=== PATIENT | female | born 1980 | race Caucasian/White ===

== ENCOUNTER → 2018-06-24 | Outpatient (REF) | payer OTHER | LOC: M SFHCLERA 18:50 | DX: R50.9 Fever, unspecified (principal) ==

== ENCOUNTER 2018-09-10 12:08 | Emergency (ER) | payer OTHER ==
[~2018-09-10] VITALS: Ht 162.6 cm; Wt 82.7 kg
[2018-09-10] MEDS ORDERED: NS 1,000 ML IV ONE (12:45)
[2018-09-10] MEDS ORDERED: PANTOPRAZOLE 40MG INJ (PROTONIX) (C9113) IV ONE (12:45)
[2018-09-10] MEDS ORDERED: KETOROLAC 30 MG/ML VIAL (J1885) IV ONE (12:45)
[2018-09-10] MEDS ORDERED: ONDANSETRON 4MG/2ML VIAL (J2405) IV ONE (12:45)
[2018-09-10 12:51] LABS: BASO % 0.3 % (0.0-1.0); EOS % 0.3 % (0.0-3.0); HEMATOCRIT 43.4 % (36.0-47.0); HEMOGLOBIN 14.9 g/dl (12.0-15.5); LYMPH # 2.8 10^3/uL (1.5-4.5); LYMPH % 32.3 % (24.0-44.0); MEAN CORPUSCULAR HEMOGLOBIN 30.1 pg (27.0-33.0); MEAN CORPUSCULAR HGB CONC 34.3 g/dl (32.0-36.5); MEAN CORPUSCULAR VOLUME 87.7 fl (80.0-96.0); MONO # 0.6 10^3/uL (0.0-0.8); MONO % 6.6 % (0.0-5.0); NEUTROPHILS # 5.3 10^3/uL (1.8-7.7); NEUTROPHILS % 60.3 % (36.0-66.0); PLATELET COUNT, AUTOMATED 349 10^3/uL (150-450); RED BLOOD COUNT 4.95 10^6/uL (4.00-5.40); WHITE BLOOD COUNT 8.8 10^3/uL (4.0-10.0)
[2018-09-10 13:03] LABS: INR 0.93; PROTHROMBIN TIME 12.5 SECONDS (12.1-14.4)
[2018-09-10 13:04] LABS: PARTIAL THROMBOPLASTIN TIME 28.3 SECONDS (25.4-37.6)
[2018-09-10 13:24] LABS: ALBUMIN 4.3 GM/DL (3.2-5.2); ALT/SGPT 22 U/L (12-78); BILIRUBIN,DIRECT 0.1 MG/DL (0.0-0.2); BILIRUBIN,TOTAL 0.4 MG/DL (0.2-1.0); BLOOD UREA NITROGEN 12 MG/DL (7-18); CALCIUM LEVEL 9.6 MG/DL (8.5-10.1); CARBON DIOXIDE LEVEL 28 MEQ/L (21-32); CHLORIDE LEVEL 102 MEQ/L (98-107); CK-MB VALUE MASS < 1.0 NG/ML (<3.6); CPK CREATINE PHOSPHOKINASE 66 U/L (26-192); CREATININE FOR GFR 0.78 MG/DL (0.55-1.30); FREE T4 1.23 NG/DL (0.76-1.46); GLOMERULAR FILTRATION RATE > 60.0 (>60); GLUCOSE, FASTING 91 MG/DL (70-100); LIPASE 136 U/L (73-393); MB/CK RELATIVE INDEX 1.52 (< OR =4); POTASSIUM SERUM 3.6 MEQ/L (3.5-5.1); SODIUM LEVEL 140 MEQ/L (136-145); TOTAL PROTEIN 7.4 GM/DL (6.4-8.2); TROPONIN I < 0.02 NG/ML (< 0.10)
[2018-09-10] MEDS ORDERED: ISOVUE-370 76% 100ML VIAL (Q9967) As Ordered ONE (13:35)
[2018-09-10 13:42] LABS: HCG, SERUM QUALITATIVE NEGATIVE (NEGATIVE)
--- NOTE | 2018-09-10 14:06 | REP ---
Clinical: Left upper quadrant pain. Technique: Axial contrast enhanced images from the lung bases to the pubic symphysis using 100 ml Isovue 370 intravenous contrast material with coronal and sagittal re-formations. Comparison: None. Findings: Lung bases are clear. Visualized heart and pericardium normal. Liver, spleen, pancreas, bilateral adrenal glands and kidneys are normal. The patient is status post cholecystectomy. The enteric system demonstrates moderate fecal stasis and presumed constipation. Normal terminal ileum and appendix are identified in the right lower quadrant. Pelvis demonstrates distended bladder likely transient and evidence for partial hysterectomy. Cystic change to the right ovary likely physiologic. No pelvic fluid or ascites. No adenopathy. No free air. Abdominal aorta and vasculature normal. Surrounding musculoskeletal structures without focal osseous abnormality. Impression: 1. Moderate fecal stasis and presumed constipation. 2. Evidence of prior hysterectomy and cholecystectomy. 3. No acute abdominopelvic pathology otherwise noted. Specifically, no ascites, inflammatory stranding, or adenopathy. Electronically Signed by Gerson Nichols MD 09/10/2018 01:58 P
--- NOTE | 2018-09-10 14:07 | REP ---
Clinical: Acute chest pain . Comparison: None . Findings: The mediastinum and cardiac silhouette are stable and within normal limits for portable technique. The lung mancini are clear without acute consolidation, effusion, or pneumothorax. Skeletal structures are intact. Impression: No acute cardiopulmonary process appreciated. Electronically Signed by Gerson Nichols MD 09/10/2018 01:59 P
[2018-09-10 14:23] VITALS: BP 132/80
[2018-09-10] MEDS ORDERED: MAGNESIUM CITRATE 300 ML BTL PO ONE (14:30)
--- NOTE | 2018-09-10 18:38 | ECGEPIP ---
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
== END 2018-09-10 14:36 | disposition home or self-care (01) ==
LOC: M ED 12:08
DX: K59.00 Constipation, unspecified (principal); Z88.0 Allergy status to penicillin; F17.210 Nicotine dependence, cigarettes, uncomplicated
CPT/HCPCS: 71045; 74177; 80048; 80076; 82550; 82553; 83690; 84439; 84443; 84484; 84703; 85025; 85610; 85730; 93005; 93041; 94760; 96361; 96374; 96375; 99285; C9113; J1885; J2405; Q9967

== ENCOUNTER → 2018-09-17 | Outpatient (CLI) | payer OTHER ==
--- NOTE | 2018-10-02 23:47 | ECWPNPC ---
PATIENT NAME: EREN MEDEROS : 1980 GENDER: FEMALE VISIT DATE: 09/17/2018 DISCHARGE DATE: 09/17/18 1256 VISIT LOCKED DATE TIME: PHYSICIAN: ANTONY BAINS MD RESOURCE: ANTONY BAINS MD REASON FOR APPOINTMENT 1. BACK PAIN HISTORY OF PRESENT ILLNESS NEW PATIENT CONSULT: WHEN DID YOUR PAIN FIRST START? . BRIEFLY DESCRIBE HOW YOUR PAIN STARTED? . HOW DOES YOUR PAIN CHANGE WITH TIME? . DOES YOUR PAIN AWAKEN YOU FROM SLEEP? . HOW MANY HOURS OF SLEEP DO YOU NORMALLY GET? . ANY DIAGNOSTIC TESTING? . FACILITY WHERE TESTS WERE DONE? ____. PAIN TREATMENT TREATMENT YES CANCER HAVE YOU EVER HAD ANY TYPE OF CANCER?NO NO. 37 YEAR OLD FEMALE PATIENT WITH A HISTORY OF CHRONIC LOW BACK PAIN. THE PATIENT DESCRIBES THE PAIN ACHING, SHARP, STABBING, SHOOTING, AND HAVING IT ALL THE TIME WITH A PAIN SCORE OF 6-9/10 DEPENDING ON PHYSICAL ACTIVITY. THE PATIENT STATES THAT SHE HAS HAD THIS PAIN SINCE AROUND 2001 AND IT STARTED IN HER NECK AREA, BUT HAS SINCE SPREAD ALL THE WAY DOWN HER BACK. THE PATIENT SAYS HER PAIN STARTS IN HER LOW BACK AREA AND RADIATES INTO HER RIGHT BUTTOCK AND RIGHT HIP AREA. THE PATIENT SAYS THAT SHE HAS TRIED PHYSICAL THERAPY AND ACUPUNCTURE IN THE PAST, BUT THEY DID NOT HELP. THE PATIENT SAYS SHE HAS DIFFICULTY SLEEPING DUE TO THIS PAIN. THE PATIENT STATES THAT SHE HAS TRIED IBUPROFEN AND NAPROXEN, BUT HER SHE EXPERIENCES AN UPSET STOMACH WHEN SHE TAKES NSAIDS. THE PATIENT SAYS SHE HAS BEEN CONSTIPATED, BUT IS CURRENTLY USING MIRALAX AND IS ON A HIGH FIBER DIET. PATIENT DENIES UNEXPLAINABLE WEIGHT LOSS, FEVER, CHILLS, NEW CHANGES ON HER URINARY CONTROL. PAIN SCREENING: PATIENT HAS A COMPLAINT OF ACUTE OR CHRONIC PAIN :YES FALL RISK SCREENING: SCREENING :NO FALLS IN THE PAST YEAR GUEVARA INVENTORY: QUESTIONNAIRE ASSESSEDTBD SCORE VALUE CALCULATED TBD CURRENT MEDICATIONS TAKING OXYCODONE-ACETAMINOPHEN 5-325 MG TABLET 1 TABLET NEEDED ORALLY EVERY 6 HRS, NOTES: FEBRUARY 2018 TAKING ALEVE 220 MG TABLET 1 TABLET WITH FOOD OR MILK NEEDED ORALLY EVERY 12 HRS TAKING CETIRIZINE HCL 10 MG TABLET 1 TABLET ORALLY ONCE A DAY, NOTES: NEEDED TAKING FLONASE 50 MCG/ACT SUSPENSION 1 SPRAY IN EACH NOSTRIL NASALLY BID TAKING CYCLOBENZAPRINE HCL 10 MG TABLET 1 TABLET NEEDED ORALLY TWICE A DAY, NOTES: IS OUT OF IT NOT-TAKING NAPROXEN 250 MG TABLET 1 TABLET WITH FOOD OR MILK ORALLY TWICE A DAY, NOTES: OUT OF MED NOT-TAKING MUCINEX 600 MG TABLET EXTENDED RELEASE 12 HOUR 1 TABLET NEEDED ORALLY EVERY 12 HRS NOT-TAKING AUGMENTIN 875-125 MG TABLET 1 TABLET ORALLY EVERY 12 HRS MEDICATION LIST REVIEWED AND RECONCILED WITH THE PATIENT PAST MEDICAL HISTORY ALLERGIC RHINITIS, UNSPECIFIED SEASONALITY, UNSPECIFIED TRIGGER DISC DISEASE, DEGENERATIVE, CERVICAL DISC DISEASE, DEGENERATIVE, LUMBAR OR LUMBOSACRAL HX OF ENDOMETRIOSIS ALLERGY INJECTIONS FOR YEARS ALLERGIES PENICILLIN (FOR ALLERGIES USE ONLY): HIVES: ALLERGY SURGICAL HISTORY CHOLECYSTECTOMY 2005 PARTIAL HYSTERECTOMY (LEFT CERVIX,RIGHT OVARY). 2011 SINUS SURGERY 2010 FAMILY HISTORY FATHER: ALIVE 56 YRS, HEART DISEASE, COPD, SMOKER MOTHER: ALIVE 55 YRS, DM-2 HTN SIBLINGS: ALIVE SON(S): ALIVE PATERNAL GRAND FATHER: 70 YRS, KIDNEY CANCER PATERNAL GRAND MOTHER: 41 YRS, MASSIVE [place] MATERNAL GRAND FATHER: 70 YRS, HEART FAILURE MATERNAL GRAND MOTHER: ALIVE, DM-2 1 BROTHER(S) , 1 SISTER(S) - HEALTHY. 3 SON(S) - HEALTHY. 1 BROTHER MANIC BIPOLAR1 SON AUTISTIC,MANIC DEPRESSIVE ALL BOYS. SOCIAL HISTORY GENERAL: TOBACCO USE ARE YOU A:NONSMOKER LUNG CANCER SCREENING DAILY. ALCOHOL SCREENING DID YOU HAVE A DRINK CONTAINING ALCOHOL IN THE PAST YEAR?YES HOW OFTEN DID YOU HAVE A DRINK CONTAINING ALCOHOL IN THE PAST YEAR?MONTHLY OR LESS (1 POINT) HOW MANY DRINKS DID YOU HAVE ON A TYPICAL DAY WHEN YOU WERE DRINKING IN THE PAST YEAR?1 OR 2 (0 POINTS) POINTS1 INTERPRETATIONNEGATIVE SIKH SIKH NO PREFERENCE LANGUAGE LANGUAGES SPOKEN:WELSH EDUCATION LEVEL OF EDUCATION:FINISHED COLLEGE OCCUPATION: DO YOU FEEL SAFE IN YOUR ENVIRONMENT? YES. DIET: DO YOU FEEL SAFE IN YOUR ENVIRONMENT? YES WORKING A [employer]. EXERCISE: DO YOU FEEL SAFE IN YOUR ENVIRONMENT? YES WORKING A [employer], REGULAR. MARITAL STATUS: DO YOU FEEL SAFE IN YOUR ENVIRONMENT? 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 OTHERS AT HOME: DO YOU FEEL SAFE IN YOUR ENVIRONMENT? 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 YES WORKING A TEMP, REGULAR, DAILY WALK, , CHILDREN, SPOUSE. HOUSING: PFS REFERRAL NEEDED? NO, CLERGY REFERRAL NEEDED? NO, PUBLIC HEALTH REFERRAL NEEDED? NO, WAS THE PROVIDER NOTIFIED OF ANY PERTINENT INFO? NO, HAS THE PATIENT BEEN EDUCATED REGARDING HIS/HER PLAN OF CARE? YES, HAS THE PATIENT BEEN EDUCATED REGARDING PAIN, THE RISK FOR PAIN, THE IMPORTANCE OF EFFECTIVE PAIN MANAGEMENT, AND THE PAIN ASSESSMENT PROCESS? YES. ADVANCE DIRECTIVE ADVANCE DIRECTIVE DISCUSSED WITH PATIENT:YES FROM [facility] JUST MOVED HERE FROM [place]. HOSPITALIZATION/MAJOR DIAGNOSTIC PROCEDURE NO HOSPITALIZATION HISTORY. REVIEW OF SYSTEMS REVIEWED BY: PROVIDER: ANTONY BAINS MD . CONSTITUTIONAL: ANY CHANGE IN YOUR MEDICAL CONDITION? NO . CHILLS NO . FEVER NO . INFECTION: DO YOU HAVE NEW INFECTIONS? NO . DO YOU HAVE HISTORY OF MRSA? NO . MUSCULOSKELETAL: ANY NEW PATTERNS OF PAIN OR NUMBNESS? ICREASED LATELY TO INTERFERE WITH FUNCTION . SYTEMIC LUPUS NO BUT PATIENT WAS BORN WITH FUSION IN CERVIACAL OF SPINE . GASTROENTEROLOGY: ANY NEW CHANGE IN BOWEL CONTROL? HAVING IOICREASED COSTIPATION AND PAINFUL TO STRAIN . BARRETTS ESOPHAGUS NO . CIRRHOSIS NO . HEPATITIS NO . LIVER FAILURE NO . ACID REFLUX NO . UNEXPLAINED WEIGHT LOSS NO . GENITOURINARY: ANY NEW CHANGE IN BLADDER CONTROL? NO . IS THERE A CHANCE YOU COULD BE ? NO . HEMATOLOGY/LYMPH: DO YOU TAKE ANY BLOOD THINNERS? (FOR EXAMPLE- COUMADIN, PLAVIX, AGGRENOX, PLATEL, PRADAXA, OR XARELTO) NO . WHEN WAS YOUR LAST DOSE? DATE: TIME: . LOW PLATELET COUNT NO . SICKLE CELL DISEASE NO . VON WILLIEBRANDS NO . FACTOR V LEIDEN NO . THALLASEMIA NO . ANEMIA NO . EASY BRUISING NO . NEUROLOGY: HAVE YOU FALLEN IN THE PAST 6 MONTHS? NO . ANY NEW EXTREMITY NUMBNESS OR WEAKNESS? NO . HEAD INJURY NO . DEMENTIA NO . CEREBRAL PALSY NO . MULTIPLE SCLEROSIS NO . DIZZINESS NO . HEADACHE NO . STROKES NO . VERTIGO NO . CARDIOLOGY: DO YOU HAVE A PACEMAKER OR DEFIBRILLATOR? NO . ANGINA NO . HEART ATTACK NO . HEART SURGERY NO . CONGESTIVE HEART FAILURE/FLUID OVERLOAD NO . CHEST PAIN NO . HIGH BLOOD PRESSURE NO . IRREGULAR HEART BEAT NO . RESPIRATORY: HAVE YOU BEEN SICK IN THE PAST WEEK? NO . FEVER NO . FLU LIKE SYMPTOMS? NO . CPAP NO . BYPAP NO . ASTHMA NO . EMPHYSEMA NO . CHRONIC LUNG DISEASES NO . SHORTNESS OF BREATH ON EXERTION NO . DO YOU USE ANY TYPE OF TOBACCO (SMOKE, SMOKELESS, CHEW)? NO . COUGH NO . SNORING NO . INTEGUMENTARY: DO YOU HAVE ANY RASHES OR OPEN SORES? NO . ALLERGIC/IMMUNO: ARE YOU ALLERGIC TO SHELLFISH OR IV DYE? NO . ANY NEW ALLERGIES? NO . PSYCHIATRIC: DO YOU HAVE THOUGHTS OF HURTING YOURSELF OR SOMEONE ELSE? NO . ARE YOU ABUSED, NEGLECTED, OR IN AN UNSAFE ENVIRONMENT? NO . ENDOCRINOLOGY: ARE YOU DIABETIC? NO . THYROID DISORDER NO . OTHER: DO YOU NEED ANY PRESCRIPTIONS? NO . IF YES, PLEASE LIST: ____ . ANY NEW PROBLEMS WITH YOUR MEDICATIONS? NO . WHEN DID YOU LAST EAT? ____ . WHEN DID YOU LAST DRINK? ____ . WHAT DID YOU LAST DRINK? ____ . NAME OF PERSON DRIVING YOU HOME? ____ . DO YOU HAVE ANY OTHER QUESTIONS OR CONCERNS NO . VITAL SIGNS WT 182.6 LBS, HT 64 IN, BMI 31.34 INDEX, BP 155/99 MM HG, HR 103 /MIN, RR 18 /MIN, TEMP 98.2 F, OXYGEN SAT % 100%, NA INITIALS AW 1133, REVIEWED BY: KG. EXAMINATION GENERAL EXAMINATION: PATIENT IS ALERT O X 3 AND COOPERATIVE. LUNGS CLEAR, TO AUSCULTATION. HEART: NO MURMURS OR GALLOPS; FACIAL CRANIAL NERVES ARE GROSSLY NORMAL. GOOD SYMMETRY OF FACIAL MUSCLE MOVEMENT. NORMAL VISUAL ÁLVAREZ. ANTALGIC GAIT. RIGHT LEG IS WEAKER AT EXTENSION AND FLEXION. STRAIGHT LEG RAISE OF THE RIGHT LEG IS POSITIVE AT 45 DEGREES FOR RADICULOPATHY. ASSESSMENTS LOW BACK PAIN - M54.5 (PRIMARY) OTHER CHRONIC PAIN - G89.29 LUMBAR RADICULOPATHY - M54.16 CERVICALGIA - M54.2 TREATMENT LOW BACK PAIN CLINICAL NOTES: WE DISCUSSED SEVERAL ISSUES WITH MRS. MEDEROS'S PAIN MANAGEMENT CASE. I WILL ORDER A LUMBAR AND CERVICAL MRI TO GET A BETTER UNDERSTANDING OF WHERE THE PATIENT'S PAIN IS COMING FROM. I WOULD LIKE THE PATIENT TO START USING GABAPENTIN FOR THE NEUROPATHIC PAIN AND THE TIZANIDINE FOR SPASMS AND PAIN. THE PATIENT WILL FOLLOW UP IN 3 WEEKS. INSTRUCTIONS WERE GIVEN, QUESTIONS WERE ANSWERED, PATIENT REPORTS UNDERSTANDING AND AGREES WITH THE PLAN. I, CARA CHERRY, DOCUMENTED THE ABOVE INFORMATION ACTING A SCRIBE FOR DR. BAINS. I HAVE REVIEWED THE ABOVE DOCUMENT, WRITTEN BY CARA BOSTON AND I VERIFY THAT IT IS ACCURATE. DEAR DR. NORRIS:THANK YOU FOR YOUR KIND REFERRAL OF MRS. MEDEROS. IF YOU WANT TO DISCUSS HER CASE WITH ME PLEASE CALL ME AT THE PAIN CENTER AT [phone]. SINCERELY,ANTONY BAINS, [facility]. OTHERS START GABAPENTIN CAPSULE, 300 MG, 1 CAPSULE, ORALLY, THREE TIMES A DAY, 30 DAY(S), 90 CAPSULE, REFILLS 1 START TIZANIDINE HCL TABLET, 2 MG, 1 TABLET NEEDED, ORALLY FOR SPASMS AND PAIN, BEFORE BEDTIME MAY REPEAT IN 5 HRS MDD2, 30 DAY(S), 50, REFILLS 1 PREVENTIVE MEDICINE PAIN CLINIC TEACHING: MEDICATIONS INFORMATIONAL HANDOUTS FOR TIZANIDINE AND GABAPENTIN PRINTED AND REVIEWED WITH PATIENTS. 09/17/18 1254 LAS. PROCEDURE CODES FA211 ESTABILISHED PATIENT [facility] CHARGE G8427 CURRENT MEDS W/DOSAGES DOCUMENTED G8730 PAIN ASSESS POS TOOL F/U PLAN DOC DISPOSITION & COMMUNICATION FOLLOW UP 3 WEEKS ELECTRONICALLY SIGNED BY ANTONY BAINS MD, MD ON 10/02/2018 AT 09:35 PM EST DISCLAIMER : THIS IS A VISIT SUMMARY EXTRACTED FROM THE [employer] CHART. IT IS NOT A COPY OF THE [employer] PROGRESS NOTE. MTDD
== END ==
LOC: M PAIN 11:30
PROVIDERS: ATTEND Anesthesiology
DX: M54.16 Radiculopathy, lumbar region (principal); G89.29 Other chronic pain; M54.2 Cervicalgia; J30.9 Allergic rhinitis, unspecified; Z79.899 Other long term (current) drug therapy; Z88.0 Allergy status to penicillin

== ENCOUNTER → 2018-10-07 | Outpatient (CLI) | payer OTHER ==
--- NOTE | 2018-10-25 00:11 | ECWPNPC ---
PATIENT NAME: EREN MEDEROS : 1980 GENDER: FEMALE VISIT DATE: 10/07/2018 DISCHARGE DATE: 10/07/18 170 VISIT LOCKED DATE TIME: PHYSICIAN: ANTONY BAINS MD RESOURCE: ANTONY BAINS MD REASON FOR APPOINTMENT 1. BACK PAIN HISTORY OF PRESENT ILLNESS HISTORY OF PRESENT ILLNESS: PAIN THE PATIENT DESCRIBES THE PAIN... 37 YEAR OLD FEMALE PATIENT WITH A HISTORY OF CHRONIC LOW BACK PAIN. THE PATIENT DESCRIBES THE PAIN ACHING AND CONTINUOUS WITH A PAIN SCORE OF 7-8/10 DEPENDING ON PHYSICAL ACTIVITY. THE PATIENT SAYS THE PAIN STARTS IN HER LOW BACK AND RADIATES TO HER RIGHT BUTTOCK AND DOWN HER RIGHT LEG WITH SOME TINGLING FEELING. THE PATIENT SAYS THAT SHE HAS DIFFICULTY SLEEPING BECAUSE SHE HAS A HARD TIME FINDING A COMFORTABLE POSITION DUE TO THIS PAIN. THE PATIENT SAYS IT FEELS BETTER WHEN SHE IS BENT OVER AND STANDING UP STRAIGHT INCREASES HER PAIN. THE PATIENT IS CURRENTLY USING TIZANIDINE AND GABAPENTIN TO AID IN PAIN RELIEF, BUT SAYS SHE HAS NOT FELT A DIFFERENCE. PATIENT DENIES UNEXPLAINABLE WEIGHT LOSS, FEVER, CHILLS, NEW CHANGES ON HER URINARY OR BOWEL CONTROL. FALL RISK SCREENING: SCREENING :NO FALLS IN THE PAST YEAR CURRENT MEDICATIONS TAKING OMEPRAZOLE 40 MG CAPSULE DELAYED RELEASE 1 CAPSULE ORALLY ONCE A DAY TAKING SUCRALFATE 1 GM TABLET 1 TABLET ON AN EMPTY STOMACH ORALLY TWICE A DAY TAKING SENOKOT S 8.6-50 MG TABLET 1 TABLET IN THE EVENING NEEDED ORALLY ONCE A DAY TAKING ALEVE 220 MG TABLET 1 TABLET WITH FOOD OR MILK NEEDED ORALLY EVERY 12 HRS TAKING CETIRIZINE HCL 10 MG TABLET 1 TABLET ORALLY ONCE A DAY, NOTES: NEEDED TAKING FLONASE 50 MCG/ACT SUSPENSION 1 SPRAY IN EACH NOSTRIL NASALLY BID TAKING GABAPENTIN 300 MG CAPSULE 1 CAPSULE ORALLY THREE TIMES A DAY TAKING TIZANIDINE HCL 2 MG TABLET 1 TABLET NEEDED ORALLY FOR SPASMS AND PAIN BEFORE BEDTIME MAY REPEAT IN 5 HRS MDD2 TAKING MIRALAX - POWDER 17 G ORALLY ONCE A DAY MEDICATION LIST REVIEWED AND RECONCILED WITH THE PATIENT PAST MEDICAL HISTORY ALLERGIC RHINITIS, UNSPECIFIED SEASONALITY, UNSPECIFIED TRIGGER DISC DISEASE, DEGENERATIVE, CERVICAL DISC DISEASE, DEGENERATIVE, LUMBAR OR LUMBOSACRAL HX OF ENDOMETRIOSIS ALLERGY INJECTIONS FOR YEARS ALLERGIES PENICILLIN (FOR ALLERGIES USE ONLY): HIVES: ALLERGY SURGICAL HISTORY CHOLECYSTECTOMY 2006 PARTIAL HYSTERECTOMY (LEFT CERVIX,RIGHT OVARY). 2012 SINUS SURGERY 2011 FAMILY HISTORY FATHER: ALIVE 56 YRS, HEART DISEASE, COPD, SMOKER MOTHER: ALIVE 55 YRS, DM-2 HTN SIBLINGS: ALIVE SON(S): ALIVE PATERNAL GRAND FATHER: 70 YRS, KIDNEY CANCER PATERNAL GRAND MOTHER: 41 YRS, MASSIVE [place] MATERNAL GRAND FATHER: 70 YRS, HEART FAILURE MATERNAL GRAND MOTHER: ALIVE, DM-2 1 BROTHER(S) , 1 SISTER(S) - HEALTHY. 3 SON(S) - HEALTHY. 1 BROTHER MANIC BIPOLAR1 SON AUTISTIC,MANIC DEPRESSIVE ALL BOYS. SOCIAL HISTORY GENERAL: TOBACCO USE ARE YOU A:NONSMOKER ALCOHOL SCREENING DID YOU HAVE A DRINK CONTAINING ALCOHOL IN THE PAST YEAR?YES HOW MANY DRINKS DID YOU HAVE ON A TYPICAL DAY WHEN YOU WERE DRINKING IN THE PAST YEAR?1 OR 2 (0 POINTS) HOW OFTEN DID YOU HAVE A DRINK CONTAINING ALCOHOL IN THE PAST YEAR?MONTHLY OR LESS (1 POINT) POINTS1 INTERPRETATIONNEGATIVE RECREATIONAL DRUG USE DRUG USE?NO CAFFEINE CAFFEINE USE?YES 1 COFFEE SEXUAL HX HAD SEX IN THE LAST 12 MONTHS (VAGINAL, ORAL, OR ANAL)?YES WITHMEN ONLY USE PROTECTION?NO LMP:06/2018 HAVE YOU EVER HAD AN STD?NO HIV / HEP-C SCREENING HIV TEST OFFERED TO PATIENT:YES DATE OFFERED:06/24/2018 TEST ACCEPTED:NO HEP-C TEST OFFERED TO PATIENT:YES DATE OFFERED:07/06/2018 REASON:PATIENT DECLINED TEST ACCEPTED:NO REASON:PATIENT DECLINED BROCHURE PROVIDED TO PATIENTNO DECLINED 07/06/2018 CHRISTIAN CHRISTIAN NO PREFERENCE LANGUAGE LANGUAGES SPOKEN:SPANISH EDUCATION LEVEL OF EDUCATION:FINISHED COLLEGE LEARNING BARRIERS / SPECIAL NEEDS CHANGE FROM LAST VISIT? NEW PT 07/06/2018, BARRIERS TO LEARNING? NO, HEARING IMPAIRED? NO, VISION IMPAIRED? NO, COGNITIVELY IMPAIRED? NO, READINESS TO LEARN? YES, LEARNING PREFERENCES? NO, LEARNING CAPABILITIES PRESENT? YES, EMOTIONAL BARRIERS? NO, SPECIAL DEVICES? NO, DIRECTOR PHYSICAL NEEDED? NO. DOMESTIC VIOLENCE DO YOU FEEL SAFE IN YOUR ENVIRONMENT?YES OCCUPATION: WORKS AT [employer]. DIET: REGULAR. EXERCISE: NONE. MARITAL STATUS: . OTHERS AT HOME: SPOUSE, CHILDREN 2 BOYS AGES 17-19 23 YEAR OLD SON LIVES IN [place]. HOUSING: OWNS HOME. ADVANCE DIRECTIVE ADVANCE DIRECTIVE DISCUSSED WITH PATIENT:NO INFORMATION OFFERED AND DECLINED. FROM [facility] JUST MOVED HERE FROM [place]. HOSPITALIZATION/MAJOR DIAGNOSTIC PROCEDURE SPINAL HEADACHE AND BLOOD PATCH 2006 REVIEW OF SYSTEMS REVIEWED BY: PROVIDER: ANTONY BAINS MD . CONSTITUTIONAL: ANY CHANGE IN YOUR MEDICAL CONDITION? NO . CHILLS NO . FEVER NO . INFECTION: DO YOU HAVE NEW INFECTIONS? NO . DO YOU HAVE HISTORY OF MRSA? NO . MUSCULOSKELETAL: ANY NEW PATTERNS OF PAIN OR NUMBNESS? NO . GASTROENTEROLOGY: ANY NEW CHANGE IN BOWEL CONTROL? NO . GENITOURINARY: ANY NEW CHANGE IN BLADDER CONTROL? NO . IS THERE A CHANCE YOU COULD BE ? NO . HEMATOLOGY/LYMPH: DO YOU TAKE ANY BLOOD THINNERS? (FOR EXAMPLE- COUMADIN, PLAVIX, AGGRENOX, PLATEL, PRADAXA, OR XARELTO) NO . WHEN WAS YOUR LAST DOSE? DATE: TIME: . NEUROLOGY: HAVE YOU FALLEN IN THE PAST 12 MONTHS? NO . ANY NEW EXTREMITY NUMBNESS OR WEAKNESS? NO . CARDIOLOGY: DO YOU HAVE A PACEMAKER OR DEFIBRILLATOR? NO . RESPIRATORY: HAVE YOU BEEN SICK IN THE PAST WEEK? NO . FEVER NO . FLU LIKE SYMPTOMS? NO . COUGH NO . INTEGUMENTARY: DO YOU HAVE ANY RASHES OR OPEN SORES? NO . ALLERGIC/IMMUNO: ARE YOU ALLERGIC TO IV DYE? NO . ANY NEW ALLERGIES? NO . PSYCHIATRIC: DO YOU HAVE THOUGHTS OF HURTING YOURSELF OR SOMEONE ELSE? NO . ARE YOU ABUSED, NEGLECTED, OR IN AN UNSAFE ENVIRONMENT? NO . ENDOCRINOLOGY: ARE YOU DIABETIC? NO . OTHER: DO YOU NEED ANY PRESCRIPTIONS? NO . IF YES, PLEASE LIST: ____ . ANY NEW PROBLEMS WITH YOUR MEDICATIONS? NO . WHEN DID YOU LAST EAT? ____ . WHEN DID YOU LAST DRINK? ____ . WHAT DID YOU LAST DRINK? ____ . NAME OF PERSON DRIVING YOU HOME? ____ . DO YOU HAVE ANY OTHER QUESTIONS OR CONCERNS YES, MEDICATIONS NOT HELPING . VITAL SIGNS WT 182 LBS, HT 64 IN, BMI 31.24 INDEX, BP 141/88 MM HG, HR 93 /MIN, RR 16 /MIN, TEMP 98.1 F, OXYGEN SAT % 99%, NA INITIALS SC 14:46, REVIEWED BY: CORKY. EXAMINATION GENERAL EXAMINATION: PATIENT IS ALERT O X 3 AND COOPERATIVE. PATIENT IS UNCOMFORTABLE AND IS IN A FLEXED POSITION. PATIENT HAS DIFFICULTY STANDING. PATIENT IS LIMPING FROM HER RIGHT LEG. TENDERNESS OVER THE LOW BACK AREA. ASSESSMENTS LOW BACK PAIN - M54.5 (PRIMARY) OTHER CHRONIC PAIN - G89.29 LUMBAR RADICULOPATHY - M54.16 TREATMENT LOW BACK PAIN CLINICAL NOTES: WE DISCUSSED SEVERAL ISSUES WITH MRS. MEDEROS'S PAIN MANAGEMENT CASE. I WILL INCREASE THE PATIENT'S GABAPENTIN TO 400MG TABLETS AND THE TIZANIDINE TO 6MG TABLETS. I WOULD ALSO LIKE THE PATIENT TO USE SOMA TO TRY TO GET THE SEVERE PAIN IN HER LOW BACK UNDER CONTROL. THE PATIENT IS HAVING A LUMBAR MRI ON THURSDAY, SO I WOULD LIKE HER TO FOLLOW UP NEXT WEEK SO I CAN REVIEW THE RESULTS. INSTRUCTIONS WERE GIVEN, QUESTIONS WERE ANSWERED, PATIENT REPORTS UNDERSTANDING AND AGREES WITH THE PLAN. I, CARA CHERRY, DOCUMENTED THE ABOVE INFORMATION ACTING A SCRIBE FOR DR. BAINS. I HAVE REVIEWED THE ABOVE DOCUMENT, WRITTEN BY CARA ECHEVERRIAIBRose AND I VERIFY THAT IT IS ACCURATE. OTHERS REFILL GABAPENTIN CAPSULE, 400 MG, 1 CAPSULE, ORALLY, THREE TIMES A DAY, 30 DAY(S), 90 CAPSULE, REFILLS 1 REFILL TIZANIDINE HCL CAPSULE, 6 MG, 1 TABLET NEEDED, ORALLY, BEFORE BEDTIME MAY REPEAT IN 6 HRS MDD2, 7 DAY(S), 14, REFILLS 1 START SOMA TABLET, 350 MG, 1 TABLET NEEDED, ORALLY, EVERY 12 HOURS NEEDED MDD2, 7 DAY(S), 14, REFILLS 0 PREVENTIVE MEDICINE PAIN CLINIC TEACHING: MEDICATIONS PRINTED AND REVIEWED INFORMATION ON NEW MEDICATION, SOMA, WITH PATIENT. PATIENT VERBALIZED AN UNDERSTANDING. RICHI BURTON 10/07/2018 5:10:43 PM > . PROCEDURE CODES FA211 ESTABILISHED PATIENT [facility] CHARGE G8427 CURRENT MEDS W/DOSAGES DOCUMENTED G8730 PAIN ASSESS POS TOOL F/U PLAN DOC DISPOSITION & COMMUNICATION FOLLOW UP 3 WEEKS ELECTRONICALLY SIGNED BY ANTONY BAINS MD, MD ON 10/24/2018 AT 05:57 PM EST DISCLAIMER : THIS IS A VISIT SUMMARY EXTRACTED FROM THE [employer] CHART. IT IS NOT A COPY OF THE [employer] PROGRESS NOTE. MTDD
== END ==
LOC: M PAIN 14:30
PROVIDERS: ATTEND Anesthesiology
DX: M54.16 Radiculopathy, lumbar region (principal); G89.29 Other chronic pain; J30.9 Allergic rhinitis, unspecified; Z79.899 Other long term (current) drug therapy; Z79.1 Long term (current) use of non-steroidal anti-inflammatories (NSAID); Z88.0 Allergy status to penicillin

== ENCOUNTER → 2018-10-09 | Outpatient (CLI) | payer OTHER ==
--- NOTE | 2018-10-11 09:37 | REP ---
MRI cervical spine without contrast: History: Neck pain. No comparison imaging. Technique: Sagittal and axial T1 and T2-weighted scans are acquired in the usual fashion with and without fat saturation. Sequences include spin echo, turbo spin-echo, and STIR imaging sequences. MRI findings: There is straightening of the normal cervical lordosis. There is developmental fusion of the C3-4 intervertebral disc space and the C3-4 facet joints bilaterally. Craniocervical junction and upper cervical cord are normal in appearance. The cervical cord is normal in coarse, caliber, and signal intensity on T1 and T2-weighted scans. Cortical and medullary bone signal intensity are normal. Vertebral body heights are preserved. Axial and sagittal images at the C2-3 level show mild central disc bulging. No other finding. At C3-4 there is no evidence of thecal sac compression. At C4-C5, there is left posterior disc bulging flattening the ventral margin of the cord on the left side and this is associated with left-sided uncovertebral spurring producing some degree of neural foraminal narrowing. No overall central canal stenosis seen. At C5-6, there is broad right posterior disc bulging effacing the CSF and flattening the right ventral margin of the cord. There is bilateral uncovertebral spurring particularly on the right producing some neural foraminal narrowing at C5-6. Overall canal size is borderline. At C6-C7, there is a right posterior disc bulging effacing the right ventral margin of the cord associated with right uncovertebral spurring. Canal size is marginal at C6-7 as well. At C7-T1, there is no significant finding. 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 Degenerative spondylosis changes C4-5 through C6-7 with multilevel neural foraminal narrowing and mild cord compression as above. Electronically Signed by Stevenson Nieves MD 10/11/2018 10:00 A
--- NOTE | 2018-10-11 09:43 | REP ---
MRI LUMBAR SPINE WITHOUT CONTRAST: HISTORY: Lumbar pain and radiculopathy. Comparison is made with images from CT study of the abdomen 09/10/2018. TECHNIQUE: Sagittal and axial T1- and T2-weighted scans are acquired in the usual fashion with and without fat saturation. Sequences include spin echo, turbo spin-echo, and STIR imaging sequences. MRI FINDINGS: Lumbar vertebral body heights are preserved. Alignment is normal. Pedicles and posterior elements are intact. There is no evidence of spondylolysis or spondylolisthesis. Conus medullaris is normal in position at L1. The central canal in the lower thoracic spinal cord is mildly prominent, 1.6 mm. This was not a feature of the cervical cord on MRI of the cervical spine. Thoracic spine MRI could be considered for further evaluation. At L4-5, there is disc space narrowing and decreased T2 signal intensity. Axial and sagittal images at this level show minimal diffuse disc bulging. No focal disc protrusion. No central canal stenosis is seen. There is mild facet hypertrophy bilaterally L4-5. No neural foraminal encroachment L5-S1, there is minimal facet hypertrophy. No disc protrusion is seen. No neural foraminal narrowing is seen. The other lumbar levels show no significant abnormality. 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 Somewhat prominent central canal in the lower thoracic spinal cord and conus. MRI of the thoracic spine could be considered for further evaluation. Electronically Signed by Stevenson Nieves MD 10/11/2018 10:00 A
== END ==
LOC: M RAD 12:54
PROVIDERS: ATTEND Anesthesiology
DX: M50.21 Other cervical disc displacement, high cervical region (principal); M51.36 Other intervertebral disc degeneration, lumbar region; M50.221 Other cervical disc displacement at C4-C5 level; M50.222 Other cervical disc displacement at C5-C6 level; M50.223 Other cervical disc displacement at C6-C7 level

== ENCOUNTER → 2018-10-15 | Outpatient (CLI) | payer OTHER ==
--- NOTE | 2018-10-30 23:36 | ECWPNPC ---
PATIENT NAME: EREN MEDEROS : 1980 GENDER: FEMALE VISIT DATE: 10/15/2018 DISCHARGE DATE: 10/15/18 1132 VISIT LOCKED DATE TIME: PHYSICIAN: ANTONY BAINS MD RESOURCE: ANTONY BAINS MD REASON FOR APPOINTMENT 1. LOW BACK HISTORY OF PRESENT ILLNESS HISTORY OF PRESENT ILLNESS: PAIN THE PATIENT DESCRIBES THE PAIN... 37 YEAR OLD FEMALE PATIENT WITH A HISTORY OF CHRONIC LOW BACK PAIN. THE PATIENT DESCRIBES THE PAIN ACHING, SORE, SHARP, AND CONTINUOUS WITH A PAIN SCORE OF 7-9/10 DEPENDING ON PHYSICAL ACTIVITY. THE PATIENT SAYS THE MAIN PAIN IS AT HER LOW BACK AREA. THE PATIENT SAYS THAT SHE HAS DIFFICULTY SLEEPING DUE TO THIS PAIN. 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 THE PATIENT IS CURRENTLY USING ALEVE, GABAPENTIN, TIZANIDINE, AND SOMA TO AID IN PAIN RELIEF. PATIENT DENIES UNEXPLAINABLE WEIGHT LOSS, FEVER, CHILLS, NEW CHANGES ON HER URINARY OR BOWEL CONTROL. FALL RISK SCREENING: SCREENING :NO FALLS IN THE PAST YEAR CURRENT MEDICATIONS TAKING OMEPRAZOLE 40 MG CAPSULE DELAYED RELEASE 1 CAPSULE ORALLY ONCE A DAY TAKING SUCRALFATE 1 GM TABLET 1 TABLET ON AN EMPTY STOMACH ORALLY TWICE A DAY TAKING SENOKOT S 8.6-50 MG TABLET 1 TABLET IN THE EVENING NEEDED ORALLY ONCE A DAY TAKING ALEVE 220 MG TABLET 1 TABLET WITH FOOD OR MILK NEEDED ORALLY EVERY 12 HRS TAKING CETIRIZINE HCL 10 MG TABLET 1 TABLET ORALLY ONCE A DAY, NOTES: NEEDED TAKING FLONASE 50 MCG/ACT SUSPENSION 1 SPRAY IN EACH NOSTRIL NASALLY BID TAKING MIRALAX - POWDER 17 G ORALLY ONCE A DAY TAKING GABAPENTIN 400 MG CAPSULE 1 CAPSULE ORALLY THREE TIMES A DAY TAKING TIZANIDINE HCL 6 MG CAPSULE 1 TABLET NEEDED ORALLY BEFORE BEDTIME MAY REPEAT IN 6 HRS MDD2 TAKING SOMA 350 MG TABLET 1 TABLET NEEDED ORALLY EVERY 12 HOURS NEEDED MDD2 MEDICATION LIST REVIEWED AND RECONCILED WITH THE PATIENT PAST MEDICAL HISTORY ALLERGIC RHINITIS, UNSPECIFIED SEASONALITY, UNSPECIFIED TRIGGER DISC DISEASE, DEGENERATIVE, CERVICAL DISC DISEASE, DEGENERATIVE, LUMBAR OR LUMBOSACRAL HX OF ENDOMETRIOSIS ALLERGY INJECTIONS FOR YEARS ALLERGIES PENICILLIN (FOR ALLERGIES USE ONLY): HIVES: ALLERGY SURGICAL HISTORY CHOLECYSTECTOMY 2006 PARTIAL HYSTERECTOMY (LEFT CERVIX,RIGHT OVARY). 2011 SINUS SURGERY 2010 FAMILY HISTORY FATHER: ALIVE 56 YRS, HEART DISEASE, COPD, SMOKER MOTHER: ALIVE 55 YRS, DM-2 HTN SIBLINGS: ALIVE SON(S): ALIVE PATERNAL GRAND FATHER: 70 YRS, KIDNEY CANCER PATERNAL GRAND MOTHER: 41 YRS, MASSIVE [place] MATERNAL GRAND FATHER: 70 YRS, HEART FAILURE MATERNAL GRAND MOTHER: ALIVE, DM-2 1 BROTHER(S) , 1 SISTER(S) - HEALTHY. 3 SON(S) - HEALTHY. 1 BROTHER MANIC BIPOLAR1 SON AUTISTIC,MANIC DEPRESSIVE ALL BOYS. SOCIAL HISTORY GENERAL: TOBACCO USE ARE YOU A:NONSMOKER ALCOHOL SCREENING DID YOU HAVE A DRINK CONTAINING ALCOHOL IN THE PAST YEAR?YES HOW MANY DRINKS DID YOU HAVE ON A TYPICAL DAY WHEN YOU WERE DRINKING IN THE PAST YEAR?1 OR 2 (0 POINTS) HOW OFTEN DID YOU HAVE A DRINK CONTAINING ALCOHOL IN THE PAST YEAR?MONTHLY OR LESS (1 POINT) POINTS1 INTERPRETATIONNEGATIVE RECREATIONAL DRUG USE DRUG USE?NO CAFFEINE CAFFEINE USE?YES 1 COFFEE SEXUAL HX HAD SEX IN THE LAST 12 MONTHS (VAGINAL, ORAL, OR ANAL)?YES WITHMEN ONLY USE PROTECTION?NO LMP:06/2018 HAVE YOU EVER HAD AN STD?NO HIV / HEP-C SCREENING HIV TEST OFFERED TO PATIENT:YES DATE OFFERED:06/24/2018 TEST ACCEPTED:NO HEP-C TEST OFFERED TO PATIENT:YES DATE OFFERED:07/06/2018 REASON:PATIENT DECLINED TEST ACCEPTED:NO REASON:PATIENT DECLINED BROCHURE PROVIDED TO PATIENTNO DECLINED 07/06/2018 HOAHAOISM HOAHAOISM NO PREFERENCE LANGUAGE LANGUAGES SPOKEN:NIGERIAN EDUCATION LEVEL OF EDUCATION:FINISHED COLLEGE LEARNING BARRIERS / SPECIAL NEEDS CHANGE FROM LAST VISIT? NEW PT 07/06/2018, BARRIERS TO LEARNING? NO, HEARING IMPAIRED? NO, VISION IMPAIRED? NO, COGNITIVELY IMPAIRED? NO, READINESS TO LEARN? YES, LEARNING PREFERENCES? NO, LEARNING CAPABILITIES PRESENT? YES, EMOTIONAL BARRIERS? NO, SPECIAL DEVICES? NO, RESIDENT CAREGIVER NEEDED? NO. DOMESTIC VIOLENCE DO YOU FEEL SAFE IN YOUR ENVIRONMENT?YES OCCUPATION: WORKS AT [employer]. DIET: REGULAR. EXERCISE: NONE. MARITAL STATUS: . OTHERS AT HOME: SPOUSE, CHILDREN 2 BOYS AGES 17-19 23 YEAR OLD SON LIVES IN [place]. PAIN CLINIC PFS, CLERGY, PUBLIC HEALTH REFERRALS PFS REFERRAL NEEDED?NO CLERGY REFERRAL NEEDED?NO PUBLIC HEALTH REFERRAL NEEDED?NO WAS THE PROVIDER NOTIFIED OF ANY PERTINENT INFO?NO HAS THE PATIENT BEEN EDUCATED REGARDING HIS/HER PLAN OF CARE?YES HAS THE PATIENT BEEN EDUCATED REGARDING PAIN, THE RISK FOR PAIN, THE IMPORTANCE OF EFFECTIVE PAIN MANAGEMENT, AND THE PAIN ASSESSMENT PROCESS?YES HOUSING: OWNS HOME. ADVANCE DIRECTIVE ADVANCE DIRECTIVE DISCUSSED WITH PATIENT:YES PT HAS NO ADVANCED DIRECTIVES. INFORMATION OFFERED AND DECLINED, ASSISTANCE DECLINED. FROM [facility] REVIEWED WITH PT LAS. HOSPITALIZATION/MAJOR DIAGNOSTIC PROCEDURE SPINAL HEADACHE AND BLOOD PATCH 2006 REVIEW OF SYSTEMS REVIEWED BY: PROVIDER: ANTONY BAINS MD . CONSTITUTIONAL: ANY CHANGE IN YOUR MEDICAL CONDITION? NO . CHILLS NO . FEVER NO . INFECTION: DO YOU HAVE NEW INFECTIONS? NO . DO YOU HAVE HISTORY OF MRSA? NO . MUSCULOSKELETAL: ANY NEW PATTERNS OF PAIN OR NUMBNESS? NO . GASTROENTEROLOGY: ANY NEW CHANGE IN BOWEL CONTROL? NO . GENITOURINARY: ANY NEW CHANGE IN BLADDER CONTROL? NO . IS THERE A CHANCE YOU COULD BE ? NO . HEMATOLOGY/LYMPH: DO YOU TAKE ANY BLOOD THINNERS? (FOR EXAMPLE- COUMADIN, PLAVIX, AGGRENOX, PLATEL, PRADAXA, OR XARELTO) NO . WHEN WAS YOUR LAST DOSE? DATE: TIME: . NEUROLOGY: HAVE YOU FALLEN IN THE PAST 12 MONTHS? NO . ANY NEW EXTREMITY NUMBNESS OR WEAKNESS? YES PT REPORTS AN INCREASE INTENSITY OF TINGLING/NUMBNESS BOTH HANDS AND FINGERS, ALSO IN RIGHT FOOT. SHE HAS NOTICED THIS OVER THE PAST WEEK . CARDIOLOGY: DO YOU HAVE A PACEMAKER OR DEFIBRILLATOR? NO . RESPIRATORY: HAVE YOU BEEN SICK IN THE PAST WEEK? NO . FEVER NO . FLU LIKE SYMPTOMS? NO . COUGH NO . INTEGUMENTARY: DO YOU HAVE ANY RASHES OR OPEN SORES? NO . ALLERGIC/IMMUNO: ARE YOU ALLERGIC TO IV DYE? NO . ANY NEW ALLERGIES? NO . PSYCHIATRIC: DO YOU HAVE THOUGHTS OF HURTING YOURSELF OR SOMEONE ELSE? NO . ARE YOU ABUSED, NEGLECTED, OR IN AN UNSAFE ENVIRONMENT? NO . ENDOCRINOLOGY: ARE YOU DIABETIC? NO . OTHER: DO YOU NEED ANY PRESCRIPTIONS? YES . IF YES, PLEASE LIST: ____?SOMA . ANY NEW PROBLEMS WITH YOUR MEDICATIONS? NO . WHEN DID YOU LAST EAT? ____ . WHEN DID YOU LAST DRINK? ____ . WHAT DID YOU LAST DRINK? ____ . NAME OF PERSON DRIVING YOU HOME? ____ . DO YOU HAVE ANY OTHER QUESTIONS OR CONCERNS NO . VITAL SIGNS WT 182.6 LBS, HT 64 IN, BMI 31.34 INDEX, BP 150/93 MM HG, HR 78 /MIN, RR 16 /MIN, TEMP 97.6 F, OXYGEN SAT % 99%, SAFE IN ENV? (Y/N) YES, NA INITIALS SC 10:11, REVIEWED BY: SUBHASH. EXAMINATION GENERAL EXAMINATION: PATIENT IS ALERT O X 3 AND COOPERATIVE. TENDERNESS IN THE LOW BACK AREA. PAIN INCREASES OVER THE LUMBAR FACET JOINTS WITH EXTENSION AND LATERAL ROTATION OF THE BACK. MRI OF THE LUMBAR SPINE DONE ON 10/09/2018 SHOWS FACET ARTHROPATHY CHANGES AT MULTIPLE LEVELS AND PROMINENT CENTRAL CANAL AT THE LOWER THORACIC SPINAL CORD. ASSESSMENTS SPONDYLOSIS OF LUMBAR REGION WITHOUT MYELOPATHY OR RADICULOPATHY - M47.816 (PRIMARY) PROMINENT CENTRAL CANAL. TREATMENT SPONDYLOSIS OF LUMBAR REGION WITHOUT MYELOPATHY OR RADICULOPATHY CLINICAL NOTES: WE DISCUSSED SEVERAL ISSUES WITH MRS. MEDEROS'S PAIN MANAGEMENT CASE. DUE TO THE LUMBAR SPONDYLOSIS, I WOULD LIKE TO MOVE FORWARD WITH A BILATERAL LUMBAR FACET THERAPEUTIC BLOCK AT THIS TIME. WE DISCUSSED THE BENEFITS, RISKS, AND ALTERNATIVES OF THE INJECTION AND THE PATIENT WOULD LIKE TO PROCEED. THE PATIENT WOULD LIKE TO MOVE FORWARD WITH IV SEDATION DUE TO PAIN AND ANXIETY ASSOCIATED WITH THE PROCEDURE. I WILL ORDER A THORACIC MRI DUE TO THE FINDINGS ON THE LUMBAR MRI. I WILL REFILL THE PATIENT'S SOMA. ISTOP _[id number] WAS REVIEWED. THE PATIENT WILL SIGN A NARCOTIC AGREEMENT AND PERFORM A URINE TOXICOLOGY TODAY. THE PATIENT WILL COME IN FOR A PRE SEDATION FOLLOW UP. INSTRUCTIONS WERE GIVEN, QUESTIONS WERE ANSWERED, PATIENT REPORTS UNDERSTANDING AND AGREES WITH THE PLAN. I, CARA CHERRY, DOCUMENTED THE ABOVE INFORMATION ACTING A SCRIBE FOR DR. BAINS. I HAVE REVIEWED THE ABOVE DOCUMENT, WRITTEN BY CARA ECHEVERRIAIBRose AND I VERIFY THAT IT IS ACCURATE. OTHERS REFILL SOMA TABLET, 350 MG, 1 TABLET NEEDED, ORALLY FOR SPASMS AND PAIN, BEFORE BEDTIME, 30 DAYS, 7, REFILLS 0 NOTES: FACET JOINT INJECTION MATERIAL WAS PRINTED. PROCEDURE CODES FA211 ESTABILISHED PATIENT [facility] FACILITY CHARGE G7963 CURRENT MEDS W/DOSAGES DOCUMENTED G0310 PAIN ASSESS POS TOOL F/U PLAN DOC DISPOSITION & COMMUNICATION FOLLOW UP 6 WEEKS (REASON: BACK PAIN) ELECTRONICALLY SIGNED BY ANTONY BAINS MD, MD ON 10/30/2018 AT 05:12 PM EST DISCLAIMER : THIS IS A VISIT SUMMARY EXTRACTED FROM THE [employer] CHART. IT IS NOT A COPY OF THE [email or web address] PROGRESS NOTE. PAUL
== END ==
LOC: M PAIN 10:00
PROVIDERS: ATTEND Anesthesiology
DX: M47.816 Spondylosis without myelopathy or radiculopathy, lumbar region (principal); G89.29 Other chronic pain; J30.2 Other seasonal allergic rhinitis; Z79.899 Other long term (current) drug therapy; Z88.0 Allergy status to penicillin

== ENCOUNTER → 2018-11-13 | Outpatient (CLI) | payer OTHER ==
--- NOTE | 2018-11-15 13:02 | REP ---
MRI thoracic spine without contrast: History: Back pain. Comparison MRI lumbar spine October 09, 2018 showed a somewhat prominent central canal in the lower thoracic cord. Comparison cervical spine MRI study from this same date showed degenerative spondylosis with mild cord compression C4-5 through C6-7. Technique: Sagittal and axial T1 and T2-weighted scans are acquired in the usual fashion with and without fat saturation. Sequences include spin echo, turbo spin-echo, and STIR imaging sequences. 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 The central canal appears prominent at the T9 and T11 levels as well. At its largest, which is at the level of the T7-8 disc, the hydromyelia cavity measures 3.8 x 3.6 mm in anteroposterior by right to left dimension respectively. The thoracic cord is minimally expanded at this level. There is no evidence of thoracic cord compressive lesion or disc herniation. Thoracic vertebral body heights are preserved. Alignment is normal. Disc spaces are maintained. No extra vertebral abnormality is observed. 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 No thoracic cord compressive lesion. Post gadolinium enhanced MRI study of the thoracic spine suggested. Electronically Signed by Stevenson Nieves MD 11/15/2018 12:53 P
== END ==
LOC: M RAD 09:12
PROVIDERS: ATTEND Anesthesiology
DX: M54.14 Radiculopathy, thoracic region (principal)

== ENCOUNTER → 2018-11-26 | Outpatient (CLI) | payer OTHER ==
--- NOTE | 2018-12-10 01:40 | ECWPNPC ---
PATIENT NAME: EREN MEDEROS : 1980 GENDER: FEMALE VISIT DATE: 11/26/2018 DISCHARGE DATE: 11/26/18 1308 VISIT LOCKED DATE TIME: PHYSICIAN: ANTONY BAINS MD RESOURCE: ANTONY BAINS MD REASON FOR APPOINTMENT 1. PRE-SEDATE APPOINTMENT HISTORY OF PRESENT ILLNESS HISTORY OF PRESENT ILLNESS: PAIN THE PATIENT DESCRIBES THE PAIN... 38 YEAR OLD FEMALE PATIENT WITH A HISTORY OF CHRONIC LOW BACK PAIN. THE PATIENT DESCRIBES THE PAIN ACHING, SORE, TENDER, STABBING, AND CONTINUOUS WITH A PAIN SCORE OF 6-9/10 DEPENDING ON PHYSICAL ACTIVITY. THE PATIENT SAYS THAT SHE HAS DIFFICULTY DOING DAILY ACTIVITIES SUCH WORKING, SLEEPING, CLEANING, AND COOKING DUE TO THIS PAIN. PATIENT DENIES UNEXPLAINABLE WEIGHT LOSS, FEVER, CHILLS, NEW CHANGES ON HER URINARY OR BOWEL CONTROL. FALL RISK SCREENING: SCREENING : NO FALLS IN THE PAST YEAR. CURRENT MEDICATIONS TAKING OMEPRAZOLE 40 MG CAPSULE DELAYED RELEASE 1 CAPSULE ORALLY ONCE A DAY TAKING FLONASE 50 MCG/ACT SUSPENSION 1 SPRAY IN EACH NOSTRIL NASALLY BID TAKING GABAPENTIN 400 MG CAPSULE 1 CAPSULE ORALLY THREE TIMES A DAY TAKING TIZANIDINE HCL 6 MG CAPSULE 1 TABLET NEEDED ORALLY BEFORE BEDTIME MAY REPEAT IN 6 HRS MDD2 NOT-TAKING SOMA 350 MG TABLET 1 TABLET NEEDED ORALLY FOR SPASMS AND PAIN BEFORE BEDTIME, NOTES: RAN OUT NOT-TAKING SUCRALFATE 1 GM TABLET 1 TABLET ON AN EMPTY STOMACH ORALLY TWICE A DAY NOT-TAKING SENOKOT S 8.6-50 MG TABLET 1 TABLET IN THE EVENING NEEDED ORALLY ONCE A DAY NOT-TAKING ALEVE 220 MG TABLET 1 TABLET WITH FOOD OR MILK NEEDED ORALLY EVERY 12 HRS NOT-TAKING CETIRIZINE HCL 10 MG TABLET 1 TABLET ORALLY ONCE A DAY, NOTES: NEEDED NOT-TAKING MIRALAX - POWDER 17 G ORALLY ONCE A DAY MEDICATION LIST REVIEWED AND RECONCILED WITH THE PATIENT PAST MEDICAL HISTORY ALLERGIC RHINITIS, UNSPECIFIED SEASONALITY, UNSPECIFIED TRIGGER DISC DISEASE, DEGENERATIVE, CERVICAL DISC DISEASE, DEGENERATIVE, LUMBAR OR LUMBOSACRAL HX OF ENDOMETRIOSIS ALLERGY INJECTIONS FOR YEARS ALLERGIES PENICILLIN (FOR ALLERGIES USE ONLY): HIVES - ALLERGY SURGICAL HISTORY CHOLECYSTECTOMY 2005 PARTIAL HYSTERECTOMY (LEFT CERVIX,RIGHT OVARY). 2012 SINUS SURGERY 2010 FAMILY HISTORY FATHER: ALIVE 56 YRS, HEART DISEASE, COPD, SMOKER MOTHER: ALIVE 55 YRS, DM-2 HTN SIBLINGS: ALIVE SON(S): ALIVE PATERNAL GRAND FATHER: 70 YRS, KIDNEY CANCER PATERNAL GRAND MOTHER: 41 YRS, MASSIVE [place] MATERNAL GRAND FATHER: 70 YRS, HEART FAILURE MATERNAL GRAND MOTHER: ALIVE, DM-2 1 BROTHER(S) , 1 SISTER(S) - HEALTHY. 3 SON(S) - HEALTHY. 1 BROTHER MANIC BIPOLAR\N1 SON AUTISTIC,MANIC DEPRESSIVE ALL BOYS. SOCIAL HISTORY GENERAL: TOBACCO USE ARE YOU A:NONSMOKER LATEX QUESTIONNAIRE LATEX ALLERGY : HAVE YOU EVER DEVELOPED ANY TYPE OF REACTION AFTER HANDLING LATEX PRODUCTS SUCH RUBBER GLOVES, CONDOMS, DIAPHRAGMS, BALLOONS, SOCKS, OR UNDERWEAR?NO LATEX ALLERGY : HAVE YOU EVER DEVELOPED ANY TYPE OF REACTION DURING OR AFTER DENTAL APPOINTMENT, VAGINAL/RECTAL EXAMINATION, SURGICAL PROCEDURE, OR ANY OTHER EXPOSURE?NO LATEX RISK : HAVE YOU EVER HAD ANY DIFFICULTY BREATHING OR HIVES AFTER EATING OR HANDLING ANY FRUITS, OR VEGETABLES; SUCH KIWI, BANANAS, STONE FRUITS, OR CHESTNUTSNO LATEX RISK : DO YOU HAVE A PREVIOUS PERSONAL HISTORY OF MORE THAN NINE SURGERIES, SPINA BIFIDA, OR REPEATED CATHERTIZATIONS? NO LATEX RISK : ARE YOU FREQUENTLY EXPOSED TO LATEX PRODUCTS IN YOUR OCCUPATION?NO DATE ASKED : 11/26/2018 ALCOHOL SCREENING DID YOU HAVE A DRINK CONTAINING ALCOHOL IN THE PAST YEAR?YES HOW MANY DRINKS DID YOU HAVE ON A TYPICAL DAY WHEN YOU WERE DRINKING IN THE PAST YEAR?1 OR 2 (0 POINTS) HOW OFTEN DID YOU HAVE A DRINK CONTAINING ALCOHOL IN THE PAST YEAR?MONTHLY OR LESS (1 POINT) POINTS1 INTERPRETATIONNEGATIVE RECREATIONAL DRUG USE DRUG USE?NO CAFFEINE CAFFEINE USE?YES 1 COFFEE SEXUAL HX HAD SEX IN THE LAST 12 MONTHS (VAGINAL, ORAL, OR ANAL)?YES WITHMEN ONLY USE PROTECTION?NO LMP:06/2018 HAVE YOU EVER HAD AN STD?NO HIV / HEP-C SCREENING HIV TEST OFFERED TO PATIENT:YES DATE OFFERED:06/24/2018 TEST ACCEPTED:NO HEP-C TEST OFFERED TO PATIENT:YES DATE OFFERED:07/06/2018 REASON:PATIENT DECLINED TEST ACCEPTED:NO REASON:PATIENT DECLINED BROCHURE PROVIDED TO PATIENTNO DECLINED 07/06/2018 AMISH AMISH NO PREFERENCE LANGUAGE LANGUAGES SPOKEN:SINHALA EDUCATION LEVEL OF EDUCATION:FINISHED COLLEGE LEARNING BARRIERS / SPECIAL NEEDS CHANGE FROM LAST VISIT? NEW PT 07/06/2018, BARRIERS TO LEARNING? NO, HEARING IMPAIRED? NO, VISION IMPAIRED? NO, COGNITIVELY IMPAIRED? NO, READINESS TO LEARN? YES, LEARNING PREFERENCES? NO, LEARNING CAPABILITIES PRESENT? YES, EMOTIONAL BARRIERS? NO, SPECIAL DEVICES? NO, WARP TENSION TESTER NEEDED? NO. DOMESTIC VIOLENCE DO YOU FEEL SAFE IN YOUR ENVIRONMENT?YES OCCUPATION: WORKS AT [employer]. DIET: REGULAR. EXERCISE: NONE. MARITAL STATUS: . OTHERS AT HOME: SPOUSE, CHILDREN 2 BOYS AGES 17-19 23 YEAR OLD SON LIVES IN [place]. PAIN CLINIC PFS, CLERGY, PUBLIC HEALTH REFERRALS PFS REFERRAL NEEDED?NO CLERGY REFERRAL NEEDED?NO PUBLIC HEALTH REFERRAL NEEDED?NO WAS THE PROVIDER NOTIFIED OF ANY PERTINENT INFO?NO HAS THE PATIENT BEEN EDUCATED REGARDING HIS/HER PLAN OF CARE?YES HAS THE PATIENT BEEN EDUCATED REGARDING PAIN, THE RISK FOR PAIN, THE IMPORTANCE OF EFFECTIVE PAIN MANAGEMENT, AND THE PAIN ASSESSMENT PROCESS?YES HOUSING: OWNS HOME. ADVANCE DIRECTIVE ADVANCE DIRECTIVE DISCUSSED WITH PATIENT:YES PT HAS NO ADVANCED DIRECTIVES. INFORMATION OFFERED AND DECLINED, ASSISTANCE DECLINED. FROM [facility] REVIEWED WITH PT LASREVIEWED WITH PATIENT 11/26/18 1219 JS. HOSPITALIZATION/MAJOR DIAGNOSTIC PROCEDURE SPINAL HEADACHE AND BLOOD PATCH 2006 REVIEW OF SYSTEMS REVIEWED BY: PROVIDER: ANTONY BAINS MD . CONSTITUTIONAL: ANY CHANGE IN YOUR MEDICAL CONDITION? NO . CHILLS NO . FEVER NO . INFECTION: DO YOU HAVE NEW INFECTIONS? NO . DO YOU HAVE HISTORY OF MRSA? NO . MUSCULOSKELETAL: ANY NEW PATTERNS OF PAIN OR NUMBNESS? NO . GASTROENTEROLOGY: ANY NEW CHANGE IN BOWEL CONTROL? NO . GENITOURINARY: ANY NEW CHANGE IN BLADDER CONTROL? NO . IS THERE A CHANCE YOU COULD BE ? NO . HEMATOLOGY/LYMPH: DO YOU TAKE ANY BLOOD THINNERS? (FOR EXAMPLE- COUMADIN, PLAVIX, AGGRENOX, PLATEL, PRADAXA, OR XARELTO) NO . WHEN WAS YOUR LAST DOSE? DATE: TIME: . NEUROLOGY: HAVE YOU FALLEN IN THE PAST 12 MONTHS? NO . ANY NEW EXTREMITY NUMBNESS OR WEAKNESS? YES, STATES NEW NUMBNESS TO PINKY AND RING FINGER ON RIGHT HAND. STATES IT STARTED A FEW WEEKS . CARDIOLOGY: DO YOU HAVE A PACEMAKER OR DEFIBRILLATOR? NO . RESPIRATORY: HAVE YOU BEEN SICK IN THE PAST WEEK? NO . FEVER NO . FLU LIKE SYMPTOMS? NO . COUGH NO . INTEGUMENTARY: DO YOU HAVE ANY RASHES OR OPEN SORES? NO . ALLERGIC/IMMUNO: ARE YOU ALLERGIC TO IV DYE? NO . ANY NEW ALLERGIES? NO . PSYCHIATRIC: DO YOU HAVE THOUGHTS OF HURTING YOURSELF OR SOMEONE ELSE? NO . ARE YOU ABUSED, NEGLECTED, OR IN AN UNSAFE ENVIRONMENT? NO . ENDOCRINOLOGY: ARE YOU DIABETIC? NO . OTHER: DO YOU NEED ANY PRESCRIPTIONS? YES . IF YES, PLEASE LIST: ____TIZANIDINE, SOMA . ANY NEW PROBLEMS WITH YOUR MEDICATIONS? NO . WHEN DID YOU LAST EAT? ____ . WHEN DID YOU LAST DRINK? ____ . WHAT DID YOU LAST DRINK? ____ . NAME OF PERSON DRIVING YOU HOME? ____ . DO YOU HAVE ANY OTHER QUESTIONS OR CONCERNS NO . VITAL SIGNS WT 185.4 LBS, HT 64 IN, BMI 31.82 INDEX, BP 145/84 MM HG, HR 69 /MIN, RR 16 /MIN, TEMP 97.3 F, OXYGEN SAT % 100%, SAFE IN ENV? (Y/N) YES, NA INITIALS NV 12:13, REVIEWED BY: LINDA. EXAMINATION GENERAL EXAMINATION: PATIENT IS ALERT O X 3 AND COOPERATIVE. LUNGS CLEAR, TO AUSCULTATION. HEART: NO MURMURS OR GALLOPS; FACIAL CRANIAL NERVES ARE GROSSLY NORMAL. GOOD SYMMETRY OF FACIAL MUSCLE MOVEMENT. NORMAL VISUAL ÁLVAREZ. TENDERNESS IN THE LOW BACK AREA. PAIN INCREASES OVER THE LUMBAR FACET JOINTS WITH EXTENSION AND LATERAL ROTATION OF THE BACK. MRI OF THE LUMBAR SPINE DONE ON 10/09/2018 SHOWS FACET ARTHROPATHY CHANGES AT MULTIPLE LEVELS. ASSESSMENTS SPONDYLOSIS OF LUMBAR REGION WITHOUT MYELOPATHY OR RADICULOPATHY - M47.816 (PRIMARY) TREATMENT SPONDYLOSIS OF LUMBAR REGION WITHOUT MYELOPATHY OR RADICULOPATHY CLINICAL NOTES: WE DISCUSSED SEVERAL ISSUES WITH MRS. MEDEROS'S PAIN MANAGEMENT CASE. DUE TO THE LUMBAR SPONDYLOSIS, I WOULD LIKE TO MOVE FORWARD WITH A BILATERAL L4-L5, L5-S1 THERAPEUTIC LUMBAR FACET BLOCK. WE DISCUSSED THE BENEFITS, RISKS, AND ALTERNATIVES OF THE INJECTION AND THE PATIENT WOULD LIKE TO PROCEED. THE PATIENT WOULD LIKE TO MOVE FORWARD WITH IV SEDATION DUE TO PAIN AND ANXIETY ASSOCIATED WITH THE PROCEDURE. THE PATIENT WILL FOLLOW UP 3 WEEKS AFTER THE INJECTION. INSTRUCTIONS WERE GIVEN, QUESTIONS WERE ANSWERED, PATIENT REPORTS UNDERSTANDING AND AGREES WITH THE PLAN. I, CARA CHERRY, DOCUMENTED THE ABOVE INFORMATION ACTING A SCRIBE FOR DR. BAINS. I HAVE REVIEWED THE ABOVE DOCUMENT, WRITTEN BY CAAR BOSTON AND I VERIFY THAT IT IS ACCURATE. . OTHERS REFILL TIZANIDINE HCL CAPSULE, 6 MG, 1 TABLET NEEDED, ORALLY, BEFORE BEDTIME MAY REPEAT IN 6 HRS MDD2, 30 DAY(S), 50, REFILLS 1 NOTES: FACET JOINT INJECTION MATERIAL WAS PRINTED,FACET JOINT INJECTION: YOUR EXPERIENCE MATERIAL WAS PRINTED. PREVENTIVE MEDICINE PAIN CLINIC TEACHING: PROCEDURE TEACHING PRINTED AND REVIEWED INFORMATION ON FACET BLOCK PROCEDURE WITH PATIENT. ALSO REVIEWED PRE-PROCEDURE INSTRUCTIONS. PATIENT VERBALIZED AN UNDERSTANDING. RICHI BURTON 11/26/2018 1:30:30 PM > . PROCEDURE CODES FA211 ESTABILISHED PATIENT [facility] FACILITY CHARGE G8427 CURRENT MEDS W/DOSAGES DOCUMENTED G8730 PAIN ASSESS POS TOOL F/U PLAN DOC DISPOSITION & COMMUNICATION FOLLOW UP 3 WEEKS ELECTRONICALLY SIGNED BY ANTONY BAINS MD, ON 12/09/2018 AT 09:18 AM EDT DISCLAIMER : THIS IS A VISIT SUMMARY EXTRACTED FROM THE [employer] CHART. IT IS NOT A COPY OF THE [employer] PROGRESS NOTE. RED
== END ==
LOC: M PAIN 12:15
PROVIDERS: ATTEND Anesthesiology
DX: M47.816 Spondylosis without myelopathy or radiculopathy, lumbar region (principal); G89.29 Other chronic pain; J30.89 Other allergic rhinitis; Z79.899 Other long term (current) drug therapy; Z88.0 Allergy status to penicillin

== ENCOUNTER → 2018-12-01 | Outpatient (CLI) | payer OTHER ==
[~2018-12-01] MED LIST: BUPIVACAINE HCL 0.25% 30 ML VIAL As Ordered ONE; ISOVUE-M 300 61% 15ML VIAL (Q9967) As Ordered ONE; LIDOCAINE 1% SDV INJ 30 ML VIAL As Ordered ONE; MIDAZOLAM INJ 2 MG/2 ML VIAL (J2250) As Ordered ONE; TRIAMCINOLONE ACETONIDE SUSP 40 MG/ML VIAL (J3301) As Ordered ONE; fentaNYL 100 MCG/2 ML INJECTION (J3010) As Ordered ONE
--- NOTE | 2018-12-01 14:41 | REP ---
Partial lumbar spine series: Two views . History: Injection procedure for pain. 18 seconds of fluoroscopy time is reported. Findings: A sequence of two fluoroscopically obtained last image hold procedural spot radiographs of the lumbar spine document needle position and contrast injection associated with injection procedure. Electronically Signed by Stevenson Nieves MD 12/01/2018 02:32 P
--- NOTE | 2018-12-13 00:28 | ECWPNPC ---
PATIENT NAME: EREN MEDEROS : 1980 GENDER: FEMALE VISIT DATE: 12/01/2018 DISCHARGE DATE: 12/01/18 1303 VISIT LOCKED DATE TIME: PHYSICIAN: ANTONY BAINS MD RESOURCE: ANTONY BAINS MD REASON FOR APPOINTMENT 1. BILAT FACETS BLOCKS W/ IV SEDATION HISTORY OF PRESENT ILLNESS HISTORY OF PRESENT ILLNESS: PAIN THE PATIENT DESCRIBES THE PAIN... FALL RISK SCREENING: SCREENING : NO FALLS IN THE PAST YEAR. CURRENT MEDICATIONS TAKING OMEPRAZOLE 40 MG CAPSULE DELAYED RELEASE 1 CAPSULE ORALLY ONCE A DAY, NOTES: 1 WEEK TAKING FLONASE 50 MCG/ACT SUSPENSION 1 SPRAY IN EACH NOSTRIL NASALLY BID, NOTES: 1 WEEK TAKING GABAPENTIN 400 MG CAPSULE 1 CAPSULE ORALLY THREE TIMES A DAY, NOTES: 11/30 7PM TAKING TIZANIDINE HCL 6 MG CAPSULE 1 TABLET NEEDED ORALLY BEFORE BEDTIME MAY REPEAT IN 6 HRS MDD2, NOTES: 11/30 7PM NOT-TAKING SOMA 350 MG TABLET 1 TABLET NEEDED ORALLY FOR SPASMS AND PAIN BEFORE BEDTIME, NOTES: RAN OUT NOT-TAKING SUCRALFATE 1 GM TABLET 1 TABLET ON AN EMPTY STOMACH ORALLY TWICE A DAY NOT-TAKING SENOKOT S 8.6-50 MG TABLET 1 TABLET IN THE EVENING NEEDED ORALLY ONCE A DAY NOT-TAKING ALEVE 220 MG TABLET 1 TABLET WITH FOOD OR MILK NEEDED ORALLY EVERY 12 HRS NOT-TAKING CETIRIZINE HCL 10 MG TABLET 1 TABLET ORALLY ONCE A DAY, NOTES: NEEDED NOT-TAKING MIRALAX - POWDER 17 G ORALLY ONCE A DAY MEDICATION LIST REVIEWED AND RECONCILED WITH THE PATIENT PAST MEDICAL HISTORY ALLERGIC RHINITIS, UNSPECIFIED SEASONALITY, UNSPECIFIED TRIGGER DISC DISEASE, DEGENERATIVE, CERVICAL DISC DISEASE, DEGENERATIVE, LUMBAR OR LUMBOSACRAL HX OF ENDOMETRIOSIS ALLERGY INJECTIONS FOR YEARS ALLERGIES PENICILLIN (FOR ALLERGIES USE ONLY): HIVES - ALLERGY SURGICAL HISTORY CHOLECYSTECTOMY 2006 PARTIAL HYSTERECTOMY (LEFT CERVIX,RIGHT OVARY). 2012 SINUS SURGERY 2010 FAMILY HISTORY FATHER: ALIVE 56 YRS, HEART DISEASE, COPD, SMOKER MOTHER: ALIVE 55 YRS, DM-2 HTN SIBLINGS: ALIVE SON(S): ALIVE PATERNAL GRAND FATHER: 70 YRS, KIDNEY CANCER PATERNAL GRAND MOTHER: 41 YRS, MASSIVE [place] MATERNAL GRAND FATHER: 70 YRS, HEART FAILURE MATERNAL GRAND MOTHER: ALIVE, DM-2 1 BROTHER(S) , 1 SISTER(S) - HEALTHY. 3 SON(S) - HEALTHY. 1 BROTHER MANIC BIPOLAR\N1 SON AUTISTIC,MANIC DEPRESSIVE ALL BOYS. SOCIAL HISTORY GENERAL: TOBACCO USE ARE YOU A:NONSMOKER LATEX QUESTIONNAIRE LATEX ALLERGY : HAVE YOU EVER DEVELOPED ANY TYPE OF REACTION AFTER HANDLING LATEX PRODUCTS SUCH RUBBER GLOVES, CONDOMS, DIAPHRAGMS, BALLOONS, SOCKS, OR UNDERWEAR?NO LATEX ALLERGY : HAVE YOU EVER DEVELOPED ANY TYPE OF REACTION DURING OR AFTER DENTAL APPOINTMENT, VAGINAL/RECTAL EXAMINATION, SURGICAL PROCEDURE, OR ANY OTHER EXPOSURE?NO DATE ASKED : 11/26/2018 LATEX RISK : HAVE YOU EVER HAD ANY DIFFICULTY BREATHING OR HIVES AFTER EATING OR HANDLING ANY FRUITS, OR VEGETABLES; SUCH KIWI, BANANAS, STONE FRUITS, OR CHESTNUTSNO LATEX RISK : DO YOU HAVE A PREVIOUS PERSONAL HISTORY OF MORE THAN NINE SURGERIES, SPINA BIFIDA, OR REPEATED CATHERTIZATIONS? NO LATEX RISK : ARE YOU FREQUENTLY EXPOSED TO LATEX PRODUCTS IN YOUR OCCUPATION?NO ALCOHOL SCREENING DID YOU HAVE A DRINK CONTAINING ALCOHOL IN THE PAST YEAR?YES HOW MANY DRINKS DID YOU HAVE ON A TYPICAL DAY WHEN YOU WERE DRINKING IN THE PAST YEAR?1 OR 2 (0 POINTS) HOW OFTEN DID YOU HAVE A DRINK CONTAINING ALCOHOL IN THE PAST YEAR?MONTHLY OR LESS (1 POINT) POINTS1 INTERPRETATIONNEGATIVE RECREATIONAL DRUG USE DRUG USE?NO CAFFEINE CAFFEINE USE?YES 1 COFFEE SEXUAL HX HAD SEX IN THE LAST 12 MONTHS (VAGINAL, ORAL, OR ANAL)?YES WITHMEN ONLY USE PROTECTION?NO LMP:06/2018 HAVE YOU EVER HAD AN STD?NO HIV / HEP-C SCREENING HIV TEST OFFERED TO PATIENT:YES DATE OFFERED:06/24/2018 TEST ACCEPTED:NO HEP-C TEST OFFERED TO PATIENT:YES DATE OFFERED:07/06/2018 REASON:PATIENT DECLINED TEST ACCEPTED:NO REASON:PATIENT DECLINED BROCHURE PROVIDED TO PATIENTNO DECLINED 07/06/2018 TAOISM TAOISM NO PREFERENCE LANGUAGE LANGUAGES SPOKEN:YI EDUCATION LEVEL OF EDUCATION:FINISHED COLLEGE LEARNING BARRIERS / SPECIAL NEEDS CHANGE FROM LAST VISIT? NEW PT 07/06/2018, BARRIERS TO LEARNING? NO, HEARING IMPAIRED? NO, VISION IMPAIRED? NO, COGNITIVELY IMPAIRED? NO, READINESS TO LEARN? YES, LEARNING PREFERENCES? NO, LEARNING CAPABILITIES PRESENT? YES, EMOTIONAL BARRIERS? NO, SPECIAL DEVICES? NO, FINANCIAL INSTITUTION TREASURER NEEDED? NO. DOMESTIC VIOLENCE DO YOU FEEL SAFE IN YOUR ENVIRONMENT?YES OCCUPATION: WORKS AT [employer]. DIET: REGULAR. EXERCISE: NONE. MARITAL STATUS: . OTHERS AT HOME: SPOUSE, CHILDREN 2 BOYS AGES 17-19 23 YEAR OLD SON LIVES IN [place]. PAIN CLINIC PFS, CLERGY, PUBLIC HEALTH REFERRALS PFS REFERRAL NEEDED?NO CLERGY REFERRAL NEEDED?NO PUBLIC HEALTH REFERRAL NEEDED?NO WAS THE PROVIDER NOTIFIED OF ANY PERTINENT INFO?YES HAS THE PATIENT BEEN EDUCATED REGARDING HIS/HER PLAN OF CARE?YES HAS THE PATIENT BEEN EDUCATED REGARDING PAIN, THE RISK FOR PAIN, THE IMPORTANCE OF EFFECTIVE PAIN MANAGEMENT, AND THE PAIN ASSESSMENT PROCESS?YES HOUSING: OWNS HOME. ADVANCE DIRECTIVE ADVANCE DIRECTIVE DISCUSSED WITH PATIENT:YES PT HAS NO ADVANCED DIRECTIVES. INFORMATION OFFERED AND DECLINED, ASSISTANCE DECLINED. [facility]25 REVIEWED WITH PT LASREVIEWED WITH PATIENT 11/26/18 1219 JS. HOSPITALIZATION/MAJOR DIAGNOSTIC PROCEDURE SPINAL HEADACHE AND BLOOD PATCH 2006 REVIEW OF SYSTEMS REVIEWED BY: PROVIDER: . CONSTITUTIONAL: ANY CHANGE IN YOUR MEDICAL CONDITION? NO . CHILLS NO . FEVER NO . INFECTION: DO YOU HAVE NEW INFECTIONS? NO . DO YOU HAVE HISTORY OF MRSA? NO . MUSCULOSKELETAL: ANY NEW PATTERNS OF PAIN OR NUMBNESS? NO . GASTROENTEROLOGY: ANY NEW CHANGE IN BOWEL CONTROL? NO . GENITOURINARY: ANY NEW CHANGE IN BLADDER CONTROL? NO . IS THERE A CHANCE YOU COULD BE ? NO . HEMATOLOGY/LYMPH: DO YOU TAKE ANY BLOOD THINNERS? (FOR EXAMPLE- COUMADIN, PLAVIX, AGGRENOX, PLATEL, PRADAXA, OR XARELTO) NO . WHEN WAS YOUR LAST DOSE? DATE: TIME: . NEUROLOGY: HAVE YOU FALLEN IN THE PAST 12 MONTHS? NO . ANY NEW EXTREMITY NUMBNESS OR WEAKNESS? NO . CARDIOLOGY: DO YOU HAVE A PACEMAKER OR DEFIBRILLATOR? NO . RESPIRATORY: HAVE YOU BEEN SICK IN THE PAST WEEK? NO . FEVER NO . FLU LIKE SYMPTOMS? NO . COUGH NO . INTEGUMENTARY: DO YOU HAVE ANY RASHES OR OPEN SORES? NO . ALLERGIC/IMMUNO: ARE YOU ALLERGIC TO IV DYE? NO . ANY NEW ALLERGIES? NO . PSYCHIATRIC: DO YOU HAVE THOUGHTS OF HURTING YOURSELF OR SOMEONE ELSE? NO . ARE YOU ABUSED, NEGLECTED, OR IN AN UNSAFE ENVIRONMENT? NO . ENDOCRINOLOGY: ARE YOU DIABETIC? NO . OTHER: DO YOU NEED ANY PRESCRIPTIONS? NO . IF YES, PLEASE LIST: ____ . ANY NEW PROBLEMS WITH YOUR MEDICATIONS? NO . WHEN DID YOU LAST EAT? 11/30 6PM . WHEN DID YOU LAST DRINK? 12/01 8AM . WHAT DID YOU LAST DRINK? WATER . NAME OF PERSON DRIVING YOU HOME? - EVAN . DO YOU HAVE ANY OTHER QUESTIONS OR CONCERNS NO . VITAL SIGNS WT 185.4 LBS, HT 64 IN, BMI 31.82 INDEX, BP 139/81 MM HG, HR 74 /MIN, RR 16 /MIN, TEMP 99.2 F, OXYGEN SAT % 99%, SAFE IN ENV? (Y/N) Y, NA INITIALS MN 10:22, REVIEWED BY: REINALDO. ASSESSMENTS SPONDYLOSIS OF LUMBAR REGION WITHOUT MYELOPATHY OR RADICULOPATHY - M47.816 (PRIMARY) SPONDYLOSIS OF LUMBOSACRAL REGION WITHOUT MYELOPATHY OR RADICULOPATHY - M47.817 TREATMENT SPONDYLOSIS OF LUMBAR REGION WITHOUT MYELOPATHY OR RADICULOPATHY SMC FACET BLOCK (PAIN)[id number] PROCEDURES PN LUMBAR FACET BLOCK THERAPEUTIC PRE PROCEDURE DIAGNOSIS LUMBAR SPONDYLOSIS, LUMBOSACRAL SPONDYLOSIS POST PROCEDURE DIAGNOSIS LUMBAR SPONDYLOSIS, LUMBOSACRAL SPONDYLOSIS PROCEDURE BILATERAL L4-L5 AND BILATERAL L5-S1 LUMBAR FACET THERAPEUTIC BLOCK SURGEON DR. ANTONY BAINS RFID MANAGER NONE ANESTHESIA LOCAL WITH IV SEDATION PRE PROCEDURE NOTE THE PATIENT HAS A HISTORY OF CHRONIC LOW BACK PAIN. I EVALUATE THE PATIENT AND REVIEWED THE CHART. I WENT OVER THE RISKS, ALTERNATIVES, AND BENEFITS ASSOCIATED WITH THIS PROCEDURE. THE PATIENT WOULD LIKE TO PROCEED AND GIVE CONSENT TO PERFORMED THE PROCEDURE. PATIENT WOULD LIKE TO MOVE FORWARD WITH IV SEDATION DUE TO DISCOMFORT, PAIN AND ANXIETY ASSOCIATED WITH THE PROCEDURE. THE PATIENT DENIES UNEXPLAINABLE WEIGHT LOSS, FEVER, CHILLS, OR NEW CHANGES IN URINARY OR BOWEL CONTROL DESCRIPTION OF PROCEDURE THE PATIENT WAS BROUGHT TO THE PROCEDURE ROOM AND PLACED IN THE PRONE POSITION. THE LUMBOSACRAL AREA WAS CLEANED WITH CHLORAPREP SOLUTION AND DRAPED ASEPTICALLY. THE PROCEDURE WAS DONE UNDER STERILE CONDITIONS. I CHECKED LATERALITY AND THE LEVEL WHERE THE PROCEDURE WAS GOING TO BE PERFORMED WITH THE PATIENT AND THE SUPPORTING STAFF AT THE MOMENT OF THE TIME OUT IN THE PROCEDURE ROOM. UNDER FLUOROSCOPIC GUIDANCE, THE TARGET POINT WAS SELECTED AT THE RIGHT AND LEFT L4-L5 AND RIGHT AND LEFT L5-S1 FACET JOINT. TARGET POINT WAS SELECTED AFTER LATERAL ROTATION AND TILT OF THE MAGNIFIER OF THE C-ARM. LIDOCAINE 0.5% WAS USED TO NUMB THE SKIN AND THE SUBCUTANEOUS TISSUE BELOW IT. SPINAL NEEDLES, 22-GAUGE, WERE ADVANCED UNDER FLUOROSCOPIC GUIDANCE AND FOLLOWING PATIENT FEEDBACK UNTIL THE TARGETS WERE TOUCHED. THE POSITION OF THE NEEDLES WAS VERIFIED WITH AP AND LATERAL VIEWS. AFTER PROPER POSITION OF THE NEEDLES WAS ACHIEVED, ISOVUE-M DYE 30% 0.1 ML WAS INJECTED SHOWING ADEQUATE SPREAD OF THE DYE. THEN A SOLUTION OF 1.9 ML OF BUPIVACAINE 0.125% OF KENALOG 10 MG WAS INJECTED AT EACH SITE. PATIENT RECEIVED VERSED 2 MG AND FENTANYL 300 MCG IV DIVIDED DOSES. THERE WAS NO EVIDENCE OF BLOOD, PARESTHESIA OR CEREBROSPINAL FLUID DURING THE PROCEDURE. THE PATIENT WAS SENT TO THE RECOVERY ROOM. THE PATIENT WAS MOVING THE EXTREMITIES AND DOING WELL. THERE WAS NO COMPLICATION DURING THE PROCEDURE. FLUOROSCOPY TIME WAS 18 SECONDS. FACE TO FACE TIME WAS 13 MINUTES. POST PROCEDURE NOTE THE PATIENT WILL BE SEEN IN A FOLLOW UP IN THE NEXT FEW WEEKS. INSTRUCTIONS WERE GIVEN, QUESTIONS WERE ANSWERED, AND THE PATIENT EXPRESSED UNDERSTANDING AND AGREES WITH THE PLAN. I, CARA CHERRY, DOCUMENTED THE ABOVE INFORMATION ACTING A SCRIBE FOR DR. BAINS. I HAVE REVIEWED THE ABOVE DOCUMENT, WRITTEN BY CARA ECHEVERRIAIBRose AND I VERIFY THAT IT IS ACCURATE. PROCEDURE CODES 6045F RADXPS IN END [id number] PXD [id number] MOD SED SAME PHYS/QHP 5/>YRS 54160 INJ PARAVERT F JNT L/S 1 LEV, MODIFIERS: 50 [id number] INJ PARAVERT F JNT L/S 2 LEV, MODIFIERS: 50 DISPOSITION & COMMUNICATION FOLLOW UP 3 WEEKS ELECTRONICALLY SIGNED BY ANTONY BAINS MD, MD ON 12/12/2018 AT 07:33 PM EDT DISCLAIMER : THIS IS A VISIT SUMMARY EXTRACTED FROM THE [employer] CHART. IT IS NOT A COPY OF THE [employer] PROGRESS NOTE. MTDD
== END ==
LOC: M PAIN 10:15
PROVIDERS: ATTEND Anesthesiology
DX: G89.29 Other chronic pain (principal); M47.816 Spondylosis without myelopathy or radiculopathy, lumbar region; M47.817 Spondylosis without myelopathy or radiculopathy, lumbosacral region; J30.9 Allergic rhinitis, unspecified; Z79.899 Other long term (current) drug therapy; Z88.0 Allergy status to penicillin
CPT/HCPCS: 64493; 64494; 99152; J2250; J3010; J3301; Q9967

== ENCOUNTER → 2018-12-06 | Outpatient (CLI) | payer OTHER ==
[~2018-12-06] MED LIST changes: -BUPIVACAINE HCL 0.25% 30 ML VIAL As Ordered ONE; -ISOVUE-M 300 61% 15ML VIAL (Q9967) As Ordered ONE; -LIDOCAINE 1% SDV INJ 30 ML VIAL As Ordered ONE; -MIDAZOLAM INJ 2 MG/2 ML VIAL (J2250) As Ordered ONE; +PROHANCE 279.3MG/ML 15ML VIAL (A9576) As Ordered ONE; +PROHANCE 279.3MG/ML 5ML VIAL (A9576) As Ordered ONE; -TRIAMCINOLONE ACETONIDE SUSP 40 MG/ML VIAL (J3301) As Ordered ONE; -fentaNYL 100 MCG/2 ML INJECTION (J3010) As Ordered ONE
--- NOTE | 2018-12-07 08:32 | REP ---
MRI THORACIC SPINE WITH CONTRAST: HISTORY: Hydromyelia. CONTRAST: ProHance 16 mL. COMPARISON: 11/13/2018 The previously described thoracic spinal cord syrinx is not well seen in the T1 weighted images. There is no abnormal enhancement. There are no enhancing lesions. The spinal cord is normal in size. IMPRESSION:There is no abnormal enhancement. Electronically Signed by Raymundo Payton MD 12/07/2018 08:42 A
== END ==
LOC: M RAD 17:06
PROVIDERS: ATTEND Anesthesiology
DX: M54.5 Low back pain (principal)
CPT/HCPCS: 72147; A9576

== ENCOUNTER → 2019-02-24 | Outpatient (CLI) | payer OTHER ==
--- NOTE | 2019-03-05 23:08 | ECWPNPC ---
PATIENT NAME: EREN MEDEROS : 1980 GENDER: FEMALE VISIT DATE: 02/24/2019 DISCHARGE DATE: 02/24/19 1605 VISIT LOCKED DATE TIME: PHYSICIAN: ANTONY BAINS MD RESOURCE: ANTONY BAINS MD REASON FOR APPOINTMENT 1. POST PROC HISTORY OF PRESENT ILLNESS HISTORY OF PRESENT ILLNESS: PAIN THE PATIENT DESCRIBES THE PAIN... 38 YEAR OLD FEMALE PATIENT WITH A HISTORY OF CHRONIC LOW BACK PAIN. THE PATIENT DESCRIBES THE PAIN BURNING, SHARP, BRIEF, AND DAILY WITH A PAIN SCORE OF 4-6/10 DEPENDING ON PHYSICAL ACTIVITY. THE PATIENT RECEIVED A BILATERAL LUMBAR FACET BLOCK ON 12/01/2018 AND REPORTS IS DOING MUCH BETTER FROM THE INJECTION. THE PATIENT SAYS SHE IS VERY SATISFIED WITH THE PAIN RELIEF FROM THE LUMBAR FACET BLOCK. THE PATIENT SAYS SHE WAS TAKING GABAPENTIN 400 MG UP TO THREE TIMES DAILY, BUT RECENTLY RAN OUT AND NEEDS A REFILL. THE PATIENT MENTIONS THE MEDICATION HELPS WITH HER PAIN, BUT CAUSES DROWSINESS DURING THE DAY FOR HER. PATIENT DENIES UNEXPLAINABLE WEIGHT LOSS, FEVER, CHILLS, NEW CHANGES ON HER URINARY OR BOWEL CONTROL. FALL RISK SCREENING: SCREENING :NO FALLS REPORTED IN THE LAST YEAR CURRENT MEDICATIONS TAKING TIZANIDINE HCL 6 MG CAPSULE 1 TABLET NEEDED ORALLY BEFORE BEDTIME MAY REPEAT IN 6 HRS MDD2 TAKING SINGULAIR 10 MG TABLET 1 TABLET ORALLY ONCE A DAY TAKING FLONASE 50 MCG/ACT SUSPENSION 1 SPRAY IN EACH NOSTRIL NASALLY BID TAKING PAZEO 0.7 % SOLUTION 1 DROP OU OPHTHALMIC ONCE A DAY TAKING DIFLUCAN 150 MG TABLET 1 TABLET ORALLY DIRECTED 1 TODAY THEN REPEAT X 1 IN 10 DAYS TAKING LEVOCETIRIZINE DIHYDROCHLORIDE 5 MG TABLET 1 TABLET IN THE EVENING ORALLY ONCE A DAY NOT-TAKING OMEPRAZOLE 40 MG CAPSULE DELAYED RELEASE 1 CAPSULE ORALLY ONCE A DAY NOT-TAKING GABAPENTIN 400 MG CAPSULE 1 CAPSULE ORALLY THREE TIMES A DAY, NOTES: RAN OUT NOT-TAKING DOXYCYCLINE MONOHYDRATE 100 MG TABLET 1 TABLET ORALLY BID DISCONTINUED LEVOCETIRIZINE DIHYDROCHLORIDE 5 MG TABLET 1 TABLET IN THE EVENING ORALLY ONCE A DAY, NOTES: DUPLICATE MEDICATION LIST REVIEWED AND RECONCILED WITH THE PATIENT PAST MEDICAL HISTORY ALLERGIC RHINITIS, UNSPECIFIED SEASONALITY, UNSPECIFIED TRIGGER DISC DISEASE, DEGENERATIVE, CERVICAL DISC DISEASE, DEGENERATIVE, LUMBAR OR LUMBOSACRAL HX OF ENDOMETRIOSIS ALLERGY INJECTIONS FOR YEARS SLOW TRANSIT CONSTIPATION NIGHT SWEATS ALLERGIES PENICILLIN (FOR ALLERGIES USE ONLY): HIVES - ALLERGY SURGICAL HISTORY CHOLECYSTECTOMY 2006 PARTIAL HYSTERECTOMY (LEFT CERVIX,RIGHT OVARY). 2012 SINUS SURGERY 2010 FAMILY HISTORY FATHER: ALIVE 56 YRS, HEART DISEASE, COPD, SMOKER MOTHER: ALIVE 55 YRS, DM-2 HTN SIBLINGS: ALIVE SON(S): ALIVE PATERNAL GRAND FATHER: 70 YRS, KIDNEY CANCER PATERNAL GRAND MOTHER: 41 YRS, MASSIVE [place] MATERNAL GRAND FATHER: 70 YRS, HEART FAILURE MATERNAL GRAND MOTHER: ALIVE, DM-2 1 BROTHER(S) , 1 SISTER(S) - HEALTHY. 3 SON(S) - HEALTHY. 1 BROTHER MANIC BIPOLAR\\\\N1 SON AUTISTIC,MANIC DEPRESSIVE ALL BOYS MATERNAL AUNT AGRESSIVE CANCER UNKNOWN WAS A SMOKER. SOCIAL HISTORY GENERAL: TOBACCO USE ARE YOU A:NONSMOKER HIV / HEP-C SCREENING HIV TEST OFFERED TO PATIENT:YES DATE OFFERED:06/24/2018 TEST ACCEPTED:NO HEP-C TEST OFFERED TO PATIENT:YES DATE OFFERED:07/06/2018 REASON:PATIENT DECLINED TEST ACCEPTED:NO REASON:PATIENT DECLINED BROCHURE PROVIDED TO PATIENTNO DECLINED 07/06/2018 OTHERS AT HOME: SPOUSE, CHILDREN 2 BOYS AGES 17-19 23 YEAR OLD SON LIVES IN [place]. HOUSING: OWNS HOME. EDUCATION LEVEL OF EDUCATION:FINISHED COLLEGE DIET: REGULAR. LANGUAGE LANGUAGES SPOKEN:[place] DOMESTIC VIOLENCE DO YOU FEEL SAFE IN YOUR ENVIRONMENT?YES RECREATIONAL DRUG USE DRUG USE?NO EXERCISE: NONE. LEARNING BARRIERS / SPECIAL NEEDS BARRIERS TO LEARNING?NO HEARING IMPAIRED?NO VISION IMPAIRED?NO COGNITIVELY IMPAIRED?NO READINESS TO LEARN?YES LEARNING PREFERENCES?NO LEARNING CAPABILITIES PRESENT?YES EMOTIONAL BARRIERS?NO SPECIAL DEVICES?NO CONSUMER SALES REPRESENTATIVE NEEDED?NO PAIN CLINIC PFS, CLERGY, PUBLIC HEALTH REFERRALS PFS REFERRAL NEEDED?NO CLERGY REFERRAL NEEDED?NO PUBLIC HEALTH REFERRAL NEEDED?NO WAS THE PROVIDER NOTIFIED OF ANY PERTINENT INFO? N/A HAS THE PATIENT BEEN EDUCATED REGARDING HIS/HER PLAN OF CARE?YES HAS THE PATIENT BEEN EDUCATED REGARDING PAIN, THE RISK FOR PAIN, THE IMPORTANCE OF EFFECTIVE PAIN MANAGEMENT, AND THE PAIN ASSESSMENT PROCESS?YES LATEX QUESTIONNAIRE LATEX ALLERGY : HAVE YOU EVER DEVELOPED ANY TYPE OF REACTION AFTER HANDLING LATEX PRODUCTS SUCH RUBBER GLOVES, CONDOMS, DIAPHRAGMS, BALLOONS, SOCKS, OR UNDERWEAR?NO LATEX ALLERGY : HAVE YOU EVER DEVELOPED ANY TYPE OF REACTION DURING OR AFTER DENTAL APPOINTMENT, VAGINAL/RECTAL EXAMINATION, SURGICAL PROCEDURE, OR ANY OTHER EXPOSURE?NO LATEX RISK : HAVE YOU EVER HAD ANY DIFFICULTY BREATHING OR HIVES AFTER EATING OR HANDLING ANY FRUITS, OR VEGETABLES; SUCH KIWI, BANANAS, STONE FRUITS, OR CHESTNUTSNO LATEX RISK : DO YOU HAVE A PREVIOUS PERSONAL HISTORY OF MORE THAN NINE SURGERIES, SPINA BIFIDA, OR REPEATED CATHERTIZATIONS? NO LATEX RISK : ARE YOU FREQUENTLY EXPOSED TO LATEX PRODUCTS IN YOUR OCCUPATION?NO DATE ASKED : 02/24/2019 CAFFEINE CAFFEINE USE?YES 1 COFFEE ADVANCE DIRECTIVE ADVANCE DIRECTIVE DISCUSSED WITH PATIENT:YES 02/24/19 PT HAS NO ADVANCED DIRECTIVES. INFORMATION OFFERED ON HCP AND DECLINED AT THIS TIME. AD [employer] NO PREFERENCE MARITAL STATUS: . ALCOHOL SCREENING DID YOU HAVE A DRINK CONTAINING ALCOHOL IN THE PAST YEAR?YES HOW MANY DRINKS DID YOU HAVE ON A TYPICAL DAY WHEN YOU WERE DRINKING IN THE PAST YEAR?1 OR 2 (0 POINTS) HOW OFTEN DID YOU HAVE A DRINK CONTAINING ALCOHOL IN THE PAST YEAR?MONTHLY OR LESS (1 POINT) POINTS1 INTERPRETATIONNEGATIVE OCCUPATION: WORKS AT [employer]. SEXUAL HX HAD SEX IN THE LAST 12 MONTHS (VAGINAL, ORAL, OR ANAL)?YES WITHMEN ONLY USE PROTECTION?NO LMP:06/2018 HAVE YOU EVER HAD AN STD?NO FROM [facility]25 REVIEWED WITH PT LASREVIEWED WITH PATIENT 11/26/18 1219 JS. HOSPITALIZATION/MAJOR DIAGNOSTIC PROCEDURE SPINAL HEADACHE AND BLOOD PATCH 2006 REVIEW OF SYSTEMS REVIEWED BY: PROVIDER: ANTONY BAINS MD . CONSTITUTIONAL: ANY CHANGE IN YOUR MEDICAL CONDITION? NO . CHILLS NO . FEVER NO . INFECTION: DO YOU HAVE NEW INFECTIONS? NO . DO YOU HAVE HISTORY OF MRSA? NO . MUSCULOSKELETAL: ANY NEW PATTERNS OF PAIN OR NUMBNESS? NO . GASTROENTEROLOGY: ANY NEW CHANGE IN BOWEL CONTROL? NO . GENITOURINARY: ANY NEW CHANGE IN BLADDER CONTROL? NO . IS THERE A CHANCE YOU COULD BE ? NO . HEMATOLOGY/LYMPH: DO YOU TAKE ANY BLOOD THINNERS? (FOR EXAMPLE- COUMADIN, PLAVIX, AGGRENOX, PLATEL, PRADAXA, OR XARELTO) NO . WHEN WAS YOUR LAST DOSE? DATE: TIME: . NEUROLOGY: HAVE YOU FALLEN IN THE PAST 12 MONTHS? NO . ANY NEW EXTREMITY NUMBNESS OR WEAKNESS? NO . CARDIOLOGY: DO YOU HAVE A PACEMAKER OR DEFIBRILLATOR? NO . RESPIRATORY: HAVE YOU BEEN SICK IN THE PAST WEEK? NO . FEVER NO . FLU LIKE SYMPTOMS? NO . COUGH NO . INTEGUMENTARY: DO YOU HAVE ANY RASHES OR OPEN SORES? NO . ALLERGIC/IMMUNO: ARE YOU ALLERGIC TO IV DYE? NO . ANY NEW ALLERGIES? NO . PSYCHIATRIC: DO YOU HAVE THOUGHTS OF HURTING YOURSELF OR SOMEONE ELSE? NO . ARE YOU ABUSED, NEGLECTED, OR IN AN UNSAFE ENVIRONMENT? NO . ENDOCRINOLOGY: ARE YOU DIABETIC? NO . OTHER: DO YOU NEED ANY PRESCRIPTIONS? YES . IF YES, PLEASE LIST: GABAPENTIN- NEEDS TO GO [place] . ANY NEW PROBLEMS WITH YOUR MEDICATIONS? NO . WHEN DID YOU LAST EAT? ____ . WHEN DID YOU LAST DRINK? ____ . WHAT DID YOU LAST DRINK? ____ . NAME OF PERSON DRIVING YOU HOME? ____ . DO YOU HAVE ANY OTHER QUESTIONS OR CONCERNS NO . VITAL SIGNS WT 186.8 LBS, HT 64 IN, BMI 32.06 INDEX, BP 155/95 MM HG, HR 81 /MIN, RR 18 /MIN, TEMP 97.8 F, OXYGEN SAT % 100%, SAFE IN ENV? (Y/N) Y, NA INITIALS AW 1513, REVIEWED BY: AD. EXAMINATION GENERAL EXAMINATION: PATIENT IS ALERT O X 3 AND COOPERATIVE. MRI OF THE LUMBAR SPINE DONE ON 10/09/2018 SHOWS FACET ARTHROPATHY CHANGES. ASSESSMENTS SPONDYLOSIS OF LUMBAR REGION WITHOUT MYELOPATHY OR RADICULOPATHY - M47.816 (PRIMARY) SPONDYLOSIS OF LUMBOSACRAL REGION WITHOUT MYELOPATHY OR RADICULOPATHY - M47.817 TREATMENT SPONDYLOSIS OF LUMBAR REGION WITHOUT MYELOPATHY OR RADICULOPATHY CLINICAL NOTES: WE DISCUSSED SEVERAL ISSUES WITH MS. MEDEROS'S PAIN MANAGEMENT CASE. THE PATIENT IS EXPERIENCING GOOD PAIN RELIEF FROM THE LUMBAR FACET BLOCK SHE RECEIVED ON 12/01/2018 AND IS VERY SATISFIED WITH THE BLOCK. THE PATIENT WILL CONTINUE WITH GABAPENTIN 400 MG TO BE TAKEN UP TO THREE TIMES DAILY AND I REFILLED THE MEDICATION TODAY. THE PATIENT WILL FOLLOW UP IN 2 MONTHS, BUT WAS ADVISED TO CALL IF SHE NEEDS TO BE SEEN SOONER. INSTRUCTIONS WERE GIVEN, QUESTIONS WERE ANSWERED, PATIENT REPORTS UNDERSTANDING AND AGREES WITH THE PLAN. I, POOJA MARTINEZ, DOCUMENTED THE ABOVE INFORMATION ACTING A SCRIBE FOR DR. BAINS. I HAVE REVIEWED THE ABOVE DOCUMENT, WRITTEN BY POOJA BOSTON AND I VERIFY THAT IT IS ACCURATE. . OTHERS REFILL GABAPENTIN CAPSULE, 400 MG, 1 CAPSULE, ORALLY, THREE TIMES A DAY, 30 DAY(S), 90 CAPSULE, REFILLS 1, NOTES: RAN OUT PROCEDURE CODES FA211 ESTABILISHED PATIENT [facility] CHARGE [id number] CURRENT MEDS W/DOSAGES DOCUMENTED G8730 PAIN ASSESS POS TOOL F/U PLAN DOC DISPOSITION & COMMUNICATION FOLLOW UP 2 MONTHS (REASON: MEDS) ELECTRONICALLY SIGNED BY ANTONY BAINS MD, MD ON 03/05/2019 AT 06:26 PM EDT DISCLAIMER : THIS IS A VISIT SUMMARY EXTRACTED FROM THE [employer] CHART. IT IS NOT A COPY OF THE [employer] PROGRESS NOTE. MTDD
== END ==
LOC: M PAIN 15:15
PROVIDERS: ATTEND Anesthesiology
DX: M47.816 Spondylosis without myelopathy or radiculopathy, lumbar region (principal); M47.817 Spondylosis without myelopathy or radiculopathy, lumbosacral region; G89.29 Other chronic pain; Z88.0 Allergy status to penicillin; Z79.899 Other long term (current) drug therapy

== ENCOUNTER → 2019-05-26 | Outpatient (REF) | payer OTHER ==
[2019-05-26 16:35] LABS: ALBUMIN 4.3 GM/DL (3.2-5.2); ALT/SGPT 50 U/L (12-78); BILIRUBIN,TOTAL 0.3 MG/DL (0.2-1.0); BLOOD UREA NITROGEN 13 MG/DL (7-18); CALCIUM LEVEL 9.7 MG/DL (8.5-10.1); CARBON DIOXIDE LEVEL 29 MEQ/L (21-32); CHLORIDE LEVEL 103 MEQ/L (98-107); CREATININE FOR GFR 0.83 MG/DL (0.55-1.30); GLOMERULAR FILTRATION RATE > 60.0 (>58); GLUCOSE, FASTING 97 MG/DL (70-100); POTASSIUM SERUM 4.2 MEQ/L (3.5-5.1); RHEUMATOID FACTOR QUANT < 10.0 IU/ML (<15.0); SODIUM LEVEL 140 MEQ/L (136-145); TOTAL PROTEIN 7.4 GM/DL (6.4-8.2)
== END ==
LOC: M SFHCPLAZ 13:56
PROVIDERS: ATTEND Nurse Practitioner Adult Health
DX: Z82.61 Family history of arthritis (principal)

== ENCOUNTER → 2019-05-27 | Outpatient (CLI) | payer OTHER ==
--- NOTE | 2019-05-27 09:32 | REP ---
Bilateral hand series: Eight views: History: Swelling. Findings: Four views of the right hand and four views of the left hand are presented. Overall mineralization pattern is normal. A metallic ring obscures the mid shaft of the proximal phalanx of the ring finger on the left. There are small benign subcortical cysts in the hamate and capitate bone on the left. No erosive changes seen. Joint spaces are preserved. Soft tissues are unremarkable. Impression: No acute abnormality. Tiny subcortical cysts in the hamate and capitate on the left. Electronically Signed by Stevenson Nieves MD 05/27/2019 09:35 A
== END ==
LOC: M WUC 08:18
PROVIDERS: ATTEND Nurse Practitioner Adult Health
DX: M79.89 Other specified soft tissue disorders (principal); M85.642 Other cyst of bone, left hand

== ENCOUNTER → 2019-09-27 | Outpatient (REF) | payer OTHER ==
[2019-09-27 19:56] LABS: BASO % 0.5 % (0.0-1.0); EOS % 0.4 % (0.0-3.0); HEMATOCRIT 41.6 % (36.0-47.0); HEMOGLOBIN 13.8 g/dl (12.0-15.5); LYMPH # 2.5 10^3/uL (1.5-5.0); LYMPH % 30.7 % (24.0-44.0); MEAN CORPUSCULAR HEMOGLOBIN 29.6 pg (27.0-33.0); MEAN CORPUSCULAR HGB CONC 33.2 g/dl (32.0-36.5); MEAN CORPUSCULAR VOLUME 89.1 fl (80.0-96.0); MONO # 0.6 10^3/uL (0.0-0.8); MONO % 7.8 % (0.0-5.0); NEUTROPHILS # 4.9 10^3/uL (1.5-8.5); NEUTROPHILS % 60.2 % (36.0-66.0); PLATELET COUNT, AUTOMATED 317 10^3/uL (150-450); RED BLOOD COUNT 4.67 10^6/uL (4.00-5.40); WHITE BLOOD COUNT 8.1 10^3/uL (4.0-10.0)
[2019-09-27 20:20] LABS: ALT/SGPT 26 U/L (12-78); BILIRUBIN,TOTAL 0.4 MG/DL (0.2-1.0); BLOOD UREA NITROGEN 10 MG/DL (7-18); C REACTIVE PROTEIN QUANTITATIV 0.94 MG/DL (0.00-0.30); CALCIUM LEVEL 8.7 MG/DL (8.5-10.1); CARBON DIOXIDE LEVEL 29 MEQ/L (21-32); CHLORIDE LEVEL 103 MEQ/L (98-107); GLOMERULAR FILTRATION RATE > 60.0 (>58); GLUCOSE, FASTING 93 MG/DL (70-100); POTASSIUM SERUM 3.8 MEQ/L (3.5-5.1); SODIUM LEVEL 139 MEQ/L (136-145)
[2019-09-27 20:31] LABS: ERYTHROCYTE SEDIMENTATION RATE 15 mm/hr (0-20)
[2019-09-28 11:01] LABS: HEPATITIS B SURFACE ANTIGEN NEGATIVE (NEGATIVE)
[2019-09-28 11:29] LABS: HEPATITIS C VIRUS ABY INDEX < 0.0 INDEX (<0.8)
[2019-09-30 00:07] LABS: HEPATITIS B CORE ANTIBODY IGG Negative (Negative); Lyme Disease IgG/IgM Antibodie <0.91 ISR (0.00-0.90); Lyme Disease IgM Ab Quantitati <0.80 index (0.00-0.79)
== END ==
LOC: M SFHCRHEU 15:39
PROVIDERS: ATTEND Internal Medicine
DX: M06.4 Inflammatory polyarthropathy (principal)
CPT/HCPCS: 36415; 80053; 85025; 85652; 86140; 86617; 86704; 86803; 87340; G0463

== ENCOUNTER → 2020-03-16 | Outpatient (CLI) | payer OTHER ==
[2020-03-16 12:17] LABS: BASO % 0.4 % (0.0-1.0); EOS % 0.4 % (0.0-3.0); HEMATOCRIT 41.7 % (36.0-47.0); HEMOGLOBIN 14.1 g/dl (12.0-15.5); LYMPH # 2.2 10^3/uL (1.5-5.0); LYMPH % 32.6 % (24.0-44.0); MEAN CORPUSCULAR HEMOGLOBIN 31.1 pg (27.0-33.0); MEAN CORPUSCULAR HGB CONC 33.8 g/dl (32.0-36.5); MEAN CORPUSCULAR VOLUME 92.1 fl (80.0-96.0); MONO # 0.5 10^3/uL (0.0-0.8); MONO % 7.5 % (0.0-5.0); NEUTROPHILS % 58.8 % (36.0-66.0); PLATELET COUNT, AUTOMATED 312 10^3/uL (150-450); RED BLOOD COUNT 4.53 10^6/uL (4.00-5.40); WHITE BLOOD COUNT 6.8 10^3/uL (4.0-10.0)
[2020-03-16 12:40] LABS: ERYTHROCYTE SEDIMENTATION RATE 9 mm/hr (0-20)
[2020-03-16 12:52] LABS: ALT/SGPT 28 U/L (12-78); BILIRUBIN,TOTAL 0.6 MG/DL (0.2-1.0); BLOOD UREA NITROGEN 8 MG/DL (7-18); C REACTIVE PROTEIN QUANTITATIV 0.78 MG/DL (0.00-0.30); CALCIUM LEVEL 9.1 MG/DL (8.5-10.1); CARBON DIOXIDE LEVEL 30 MEQ/L (21-32); CHLORIDE LEVEL 105 MEQ/L (98-107); CREATININE FOR GFR 0.82 MG/DL (0.55-1.30); GLOMERULAR FILTRATION RATE > 60.0 (>58); GLUCOSE, FASTING 81 MG/DL (70-100); POTASSIUM SERUM 4.3 MEQ/L (3.5-5.1); SODIUM LEVEL 137 MEQ/L (136-145); TOTAL PROTEIN 6.9 GM/DL (6.4-8.2)
== END ==
LOC: M WUC 09:18
PROVIDERS: ATTEND Internal Medicine
DX: M06.4 Inflammatory polyarthropathy (principal)

== ENCOUNTER → 2020-07-27 | Outpatient (CLI) | payer SELFPAY | LOC: M LABSMTC 12:11 | PROVIDERS: ATTEND Pediatrics | DX: Z20.828 Contact with and (suspected) exposure to other viral communicable diseases (principal) ==

== ENCOUNTER → 2020-08-27 | Outpatient (REF) | payer OTHER | LOC: M LAB REF 13:58 | PROVIDERS: ATTEND Physician Assistant | DX: D23.4 Other benign neoplasm of skin of scalp and neck (principal) | CPT/HCPCS: 11102; 88305; G0463 ==

== ENCOUNTER → 2021-03-01 | Outpatient (CLI) | payer SELFPAY | LOC: M LABSMTC 12:16 | PROVIDERS: ATTEND Pediatrics | DX: Z20.822 Contact with and (suspected) exposure to COVID-19 (principal) ==